=== PATIENT | female | born 1945 | race Caucasian/White ===

== ENCOUNTER → 2018-02-08 10:25 | Outpatient (CLI) | payer MEDICARE, OTHER, SELFPAY ==
[2018-02-08 11:17] LABS: Add Manual Diff / Slide Review NO; Basophils Percent Auto 1.2 % (0-2); Eosinophils Percent Auto 2.4 % (2-4); Hematocrit 37.6 % (36-46); Hemoglobin 12.9 g/dL (12.0-16.0); Mean Corpuscular HGB Conc 34.4 % (30-36); Mean Corpuscular Hemoglobin 31.5 PG (26-34); Mean Corpuscular Volume 91.6 fL (80-100); Neutrophils Absolute Auto 3800 /uL (3000-5900); Neutrophils Percent Auto 61.4 % (50-75); Platelet Count 157 X10^3/uL (150-400); Red Cell Distribution Width 13.6 % (11.6-14.8); White Blood Cell Count 6.2 X10^3/uL (4.5-11.0)
[2018-02-08 11:37] LABS: Alanine Aminotransferase 29 IU/L (9-52); Albumin 4.2 g/dL (3.5-5.0); Albumin Globulin Ratio 1.4 (1.0-2.8); Alkaline Phosphatase 40 U/L (38-126); Aspartate Aminotransferase 28 IU/L (14-36); BUN Creatinine Ratio 24.3 (6-22); Bilirubin Total 0.6 mg/dL (0.2-1.3); Calcium 9.1 mg/dL (8.4-10.2); Estimated Glomerular Filt Rate > 60.0 mL/min (>60); Glucose 89 mg/dL (80-110); HEMOLYSIS < 15 (0-50); Potassium 4.1 mmol/L (3.4-5.1); Sodium 139 mmol/L (137-145); Total Protein 7.2 g/dL (6.3-8.2)
[2018-02-08 13:21] LABS: Cholesterol 190 mg/dL (140-199); HDL Cholesterol 58 mg/dL (40-60); LDL Cholesterol Calculated 105 mg/dL (<100); Triglycerides 137 mg/dL (35-150)
[2018-02-12 16:02] LABS: Cancer Antigen 27.29 29 U/mL (< 38)
== END ==
PROVIDERS: PCP Family Medicine; Visit Provider Nurse Practitioner Gerontology
DX: C50.919 Malignant neoplasm of unspecified site of unspecified female breast (principal); Z13.220 Encounter for screening for lipoid disorders
CPT/HCPCS: 36415; 80053; 80061; 85025; 86300

== ENCOUNTER → 2018-09-02 10:45 | Outpatient (CLI) | payer MEDICARE, OTHER, SELFPAY ==
--- NOTE | 2018-09-02 10:29 | DI.RAD.S_ITS ---
This blank DEXA report has been sent in error by the PACS system. The correct and complete report will be forthcoming in 1-2 days. Thank you for your patience and understanding. Dictated by: Arun Kirby M.D. on 09/02/2018 at 11:48 Approved by: Arun Kirby M.D. on 09/02/2018 at 11:48
[2018-09-02 11:05] LABS: Add Manual Diff / Slide Review NO; Basophils Percent Auto 0.9 % (0-2); Eosinophils Percent Auto 1.8 % (2-4); Hematocrit 39.9 % (36-46); Hemoglobin 13.5 g/dL (12.0-16.0); Lymphocytes Percent Auto 25.6 % (25-40); Mean Corpuscular HGB Conc 33.9 % (30-36); Mean Corpuscular Hemoglobin 31.4 PG (26-34); Mean Corpuscular Volume 92.5 fL (80-100); Neutrophils Absolute Auto 3500 /uL (3000-5900); Neutrophils Percent Auto 62.7 % (50-75); Platelet Count 161 X10^3/uL (150-400); Red Blood Cell Count 4.31 X10^6/uL (4.0-5.2); Red Cell Distribution Width 13.4 % (11.6-14.8); White Blood Cell Count 5.5 X10^3/uL (4.5-11.0)
[2018-09-02 11:24] LABS: Alanine Aminotransferase 25 IU/L (9-52); Albumin 4.4 g/dL (3.5-5.0); Albumin Globulin Ratio 1.5 (1.0-2.8); Alkaline Phosphatase 40 U/L (38-126); Aspartate Aminotransferase 31 IU/L (14-36); BUN Creatinine Ratio 23.8 (6-22); Bilirubin Total 0.5 mg/dL (0.2-1.3); Blood Urea Nitrogen 19 mg/dL (7-17); Calcium 9.3 mg/dL (8.4-10.2); Carbon Dioxide 28 mmol/L (22-32); Chloride 102 mmol/L (98-107); Estimated Glomerular Filt Rate > 60.0 mL/min (>60); Globulin 2.9 g/dL (1.7-4.1); Glucose 110 mg/dL (80-110); HEMOLYSIS < 15 (0-50); Sodium 142 mmol/L (137-145); Total Protein 7.3 g/dL (6.3-8.2)
[2018-09-03 16:07] LABS: Cancer Antigen 27.29 29 U/mL (< 38)
== END ==
PROVIDERS: PCP Family Medicine; Visit Provider Nurse Practitioner Gerontology
DX: M85.851 Other specified disorders of bone density and structure, right thigh (principal); Z78.0 Asymptomatic menopausal state; C50.912 Malignant neoplasm of unspecified site of left female breast; Z79.810 Long term (current) use of selective estrogen receptor modulators (SERMs); Z90.722 Acquired absence of ovaries, bilateral; Z87.891 Personal history of nicotine dependence
CPT/HCPCS: 36415; 77080; 80053; 85025; 86300

== ENCOUNTER → 2018-12-16 11:32 | Outpatient (CLI) | payer MEDICARE, OTHER, SELFPAY ==
--- NOTE | 2018-12-16 | DI.MG.S_ITS ---
BILATERAL DIGITAL SCREENING MAMMOGRAM 3D/2D WITH CAD POST LUMPECTOMY: 12/16/2018 CLINICAL: Routine screening. Personal history of left breast cancer. Comparison is made to exams dated: 11/28/2017 mammogram, 11/17/2016 mammogram, and 11/16/2015 mammogram - [facility]. The tissue of both breasts is heterogeneously dense. This may lower the sensitivity of mammography. Current study was also evaluated with a Computer Aided Detection (CAD) system. There are benign post operative findings in the left breast. There also are benign calcifications in both breasts. No significant masses, calcifications, or other findings are seen in either breast. There has been no significant interval change. IMPRESSION: There is no mammographic evidence of malignancy. A 1 year screening mammogram is recommended. This exam was interpreted at Station ID: [id number]. NOTE: For mammograms, a report in lay terms will be sent to the patient. Approximately 15% of breast malignancies will not be visualized mammographically. In the management of a palpable breast mass, a negative mammogram must not discourage biopsy of a clinically suspicious lesion. Electronically Signed By: Rigo hernandez/stephan:12/16/2018 13:18:47 letter sent: Normal Exam ACR BI-RADS Category 2: Benign Finding(s) 3342F
== END ==
PROVIDERS: PCP Internal Medicine; Referring Provider Internal Medicine Hematology & Oncology; Visit Provider Internal Medicine
DX: Z12.31 Encounter for screening mammogram for malignant neoplasm of breast (principal); Z85.3 Personal history of malignant neoplasm of breast
CPT/HCPCS: 77063; 77067

== ENCOUNTER → 2019-01-08 09:35 | Outpatient (CLI) | payer MEDICARE, OTHER, SELFPAY ==
[2019-01-08 10:22] LABS: Appearance Urine UA CLEAR; Bilirubin Urine UA NEGATIVE (NEGATIVE); Color Urine UA YELLOW; Glucose Urine UA NEGATIVE (Negative); Ketones Urine UA NEGATIVE (NEGATIVE); Leukocyte Esterase Urine UA 1+ (NEGATIVE); Nitrite Urine UA NEGATIVE (Negative); Occult Blood Urine UA TRACE-INTACT (Negative); Protein Urine UA NEGATIVE (Negative); Specific Gravity Urine UA 1.025 (1.000-1.035); Urobilinogen Urine UA 0.2 E.U./dL (0.2); pH Urine UA 5.5 (4.5-8.0)
[2019-01-08 10:30] LABS: Add Manual Diff / Slide Review NO; Basophils Absolute Auto 0 /uL (0-100); Eosinophils Absolute Auto 100 /uL (0-450); Eosinophils Percent Auto 2.2 % (2-4); Hematocrit 37.1 % (36-46); Hemoglobin 12.7 g/dL (12.0-16.0); Lymphocytes Absolute Auto 1800 /uL (1100-4500); Lymphocytes Percent Auto 36.4 % (25-40); Mean Corpuscular HGB Conc 34.2 % (30-36); Mean Corpuscular Hemoglobin 32.2 PG (26-34); Mean Corpuscular Volume 94.1 fL (80-100); Monocytes Absolute Auto 500 /uL (0-900); Monocytes Percent Auto 11.1 % (3-14); Neutrophils Absolute Auto 2400 /uL (1500-7000); Neutrophils Percent Auto 49.3 % (50-75); Platelet Count 157 X10^3/uL (150-400); Red Blood Cell Count 3.94 X10^6/uL (4.0-5.2); Red Cell Distribution Width 13.9 % (11.6-14.8); White Blood Cell Count 4.9 X10^3/uL (4.5-11.0)
[2019-01-08 10:42] LABS: Alanine Aminotransferase 27 IU/L (9-52); Albumin 4.3 g/dL (3.5-5.0); Albumin Globulin Ratio 1.5 (1.0-2.8); Alkaline Phosphatase 37 U/L (38-126); Aspartate Aminotransferase 32 IU/L (14-36); BUN Creatinine Ratio 21.4 (6-22); Bilirubin Total 0.7 mg/dL (0.2-1.3); Blood Urea Nitrogen 15 mg/dL (7-17); Carbon Dioxide 29 mmol/L (22-32); Chloride 104 mmol/L (98-107); Cholesterol 194 mg/dL (140-199); Estimated Glomerular Filt Rate > 60.0 mL/min (>60); Globulin 2.9 g/dL (1.7-4.1); Glucose 91 mg/dL (80-110); HDL Cholesterol 62 mg/dL (40-60); HEMOLYSIS 25 (0-50); LDL Cholesterol Calculated 112 mg/dL (<100); Potassium 4.3 mmol/L (3.4-5.1); Sodium 140 mmol/L (137-145); Total Protein 7.2 g/dL (6.3-8.2); Triglycerides 98 mg/dL (35-150)
[2019-01-08 11:01] LABS: B Type Natriuretic Peptide < 100 (<100)
[2019-01-08 11:12] LABS: Bacteria Urine Few (2-10); Mucus Urine 1+ (Negative); RBC Urine 1-5/HPF (0-5/HPF); Squamous Epithelial Cell Urine 5-10 /HPF (0-5/HPF); WBC Urine 5-10/HPF (0-5/HPF)
[2019-01-08 11:49] LABS: Thyroid Stimulating Hormone 2.03 uIU/mL (0.47-4.68)
[2019-01-08 12:00] LABS: Vitamin D 25 Hydroxy (D3) 31.3 ng/mL (30.0-100.0)
== END ==
PROVIDERS: PCP Internal Medicine; Visit Provider Internal Medicine
DX: I10 Essential (primary) hypertension (principal); G47.19 Other hypersomnia; E78.5 Hyperlipidemia, unspecified; M85.80 Other specified disorders of bone density and structure, unspecified site; Z86.79 Personal history of other diseases of the circulatory system; Z85.3 Personal history of malignant neoplasm of breast
CPT/HCPCS: 36415; 80053; 80061; 81001; 82306; 83880; 84443; 85025

== ENCOUNTER → 2019-03-06 09:15 | Outpatient (CLI) | payer MEDICARE, OTHER, SELFPAY ==
--- NOTE | 2019-03-06 | DI.RAD.S_ITS ---
PROCEDURE: FL BARIUM SWALLOW W SPEECH INDICATIONS: Dysphagia, unspecified TECHNIQUE: Examination was conducted in conjunction with speech pathology per standard protocol. In the lateral projection, filming was performed of the patient swallowing. AP projection filming may also be performed with patient swallowing. COMPARISON: None. FINDINGS: Function: The oral preparatory phase appears normal, with proper containment. The subsequent oral propulsive phase, pharyngeal phase, and esophageal phase of swallowing also appear normal with all proffered substances. No laryngotracheal penetration or aspiration. No pathologic vallecular pooling. Morphology: No cricopharyngeal bar is identified. No cervical esophageal webs. No Zenker's diverticulum. No strictures. IMPRESSION: Normal exam. Please see separate speech pathologist report for detail. Dictated by: Rosemary Galvan M.D. on 03/06/2019 at 10:45 Approved by: Rosemary Galvan M.D. on 03/06/2019 at 10:46
--- NOTE | 2019-03-07 10:45 | ST.SWALLOW ---
Care Team Visit Care Team Role Provider Type Jordan Hawk MD Family Provider Physician Specialty: Oncology Address: [address] [place] [address], [id number] Email: Latonya Hernández MD Attending Provider Non-Staff Primary Care Provider Specialty: Internal Medicine Address: [address] [place] [address], [id number] Email: [email or web address] Modified Barium Swallow Study CUSTOMER ASSISTANCE ASSOCIATE Modified Barium Swallow Study Start: 03/07/19 10:20 Freq: Status: Active Protocol: Document 03/07/19 10:21 TLC (Rec: 03/07/19 10:44 TLC [id number]) Modified Barium Swallow Study Total Time Visit Start Time 09:30 Visit Stop Time 10:00 Total Visit Minutes [address] Latonya Hernández Setting Setting Outpatient Care Patient Information Identification Type Name Patient History Mrs. Valencia is a 73 year old female with a past medical history breast cancer . She has had a 6 month history of dysphagia with solids and liquids. She also reports significant choking on her saliva and difficulty with swallowing pills. She had a barium swallow in 2011 without abnormality. Subjective Observations Mrs. Valencia arrived on time. She was pleasant and cooperative during the study. Education was provided to both and Mrs. Valencia following the study. Patient Positioning Position View Lat-A/P Imaging Lateral View Textures Administered Trials Presented Thin Liquid via Spoon Thin Liquid via Cup [place] Liquid via Spoon [place] Liquid via Cup Honey Liquid via Spoon Pudding Thick Liquid via Spoon Regular Textures Oral Phase Source: MBSIMP (TM) (C) Bolus Specific Scoring Grid Lip Closure No Impairment (WNL) Tongue Control During Bolus Hold No Impairment (WNL) Bolus Prep/Mastication No Impairment (WNL) Bolus Transport/Lingual Motion No Impairment (WNL) Oral Residue No Impairment (WNL) Residue Clearing No Impairment (WNL) Pharyngeal Phase Source: MBSIMP (TM) (C) Bolus Specific Scoring Grid Soft Palate Elevation No Impairment (WNL) Laryngeal Elevation No Impairment (WNL) Anterior Hyoid Movement No Impairment (WNL) Epiglottic Range of Motion No Impairment (WNL) A/P View Textures Administered Trials Presented Barium Tablet A/P View Observations Pharyngeal Contraction No Impairment (WNL) Clinical Impressions Findings Limited exam due to technological malfunction precluding the ability to review imaging in detail; however, no penetration, aspiration or significant impairments identified during the study in real time. Cause of symptoms was not identified ; however, we discussed laryngopharyngeal reflux as a potential contributing factor , given presence of throat clearing. . Recommend follow- up with PCP. Patient may also benefit from otolaryngology evaluation at discretion of PCP. Patient Appropriate for Therapy No Recommendations Diet Liquids Order Thin Diet Order Regular Treatment Plan Recommended Referrals ENT Consult Additional Recommended Referrals Follow up with PCP Compensatory Strategies Recommendations Sitting Upright (90 deg) Small Bites and Sips Alternate Liquids/Solids
== END ==
PROVIDERS: PCP Internal Medicine; Visit Provider Internal Medicine
DX: R13.10 Dysphagia, unspecified (principal)
CPT/HCPCS: 74230; 92611

== ENCOUNTER → 2019-03-24 09:27 | Outpatient (CLI) | payer MEDICARE, OTHER, SELFPAY ==
--- NOTE | 2019-04-08 08:45 | P.HOLT.S_ITS ---
Air Conditioning Unit Assembler Report Referral & Results Date Patient Seen: 03/24/19 Requesting provider: Kaylee Gagnon Indication: SVT Duration of monitoring (days): 7 Diary information: Their 3 patient diary entries associated with sinus rhythm, PACs, PVCs, and SVT There 3 patient triggered events associated with sinus rhythm, PACs, PVCs, and SVT Data: Minimum heart rate identified was 57 beats per minute at 08:14 on 03/31/2019 Maximum sinus heart rate was 134 beats per minute at 13:00 on 03/29/2019 Maximum overall heart rate was 207 beats per minute at 21:50 on 03/28/2019 during a 7 beat run of SVT Patient had 35 runs of supraventricular tachycardia with the fastest being 7 beats at 207 beats per minute and the longest lasting 1 minutes 47 seconds at a rate of 109 beats per minute, thus suggesting possible ectopic atrial tachycardia versus true SVT Impression: Patient with rare supraventricular dysrhythmia as above. Clinical correlation suggested
== END ==
PROVIDERS: Family Provider Internal Medicine; PCP Family Medicine; Visit Provider Family Medicine
DX: I47.1 Supraventricular tachycardia (principal)
CPT/HCPCS: 0296T; 0298T

== ENCOUNTER → 2020-03-05 12:44 | Outpatient (CLI) | payer MEDICARE, OTHER, SELFPAY ==
--- NOTE | 2020-03-05 | DI.MG.S_ITS ---
BILATERAL DIGITAL SCREENING MAMMOGRAM 3D/2D WITH CAD: 03/05/2020 CLINICAL: Routine screening. Breast cancer. Comparison is made to exams dated: 12/16/2018 mammogram, 11/28/2017 mammogram, 11/17/2016 mammogram, and 11/16/2015 mammogram - [facility]. The tissue of both breasts is heterogeneously dense. This may lower the sensitivity of mammography. Current study was also evaluated with a Computer Aided Detection (CAD) system. There are benign calcifications in both breasts. There also are benign vascular calcifications in both breasts. Additionally, there are benign post operative findings in the left breast. No significant masses, calcifications, or other findings are seen in either breast. There has been no significant interval change. IMPRESSION: There is no mammographic evidence of malignancy. A 1 year screening mammogram is recommended. This exam was interpreted at Station ID: [id number]. NOTE: For mammograms, a report in lay terms will be sent to the patient. Approximately 15% of breast malignancies will not be visualized mammographically. In the management of a palpable breast mass, a negative mammogram must not discourage biopsy of a clinically suspicious lesion. Electronically Signed By: Nhan goode/stephan:03/05/2020 14:43:08 letter sent: Normal Exam ACR BI-RADS Category 2: Benign Finding(s) 3342F
[2020-03-05 14:26] LABS: Add Manual Diff / Slide Review NO; Basophils Absolute Auto 0 /uL (0-100); Basophils Percent Auto 0.8 % (0-2); Eosinophils Absolute Auto 100 /uL (0-450); Eosinophils Percent Auto 1.6 % (2-4); Hematocrit 38.9 % (36-46); Hemoglobin 13.5 g/dL (12.0-16.0); Lymphocytes Absolute Auto 1700 /uL (1100-4500); Mean Corpuscular HGB Conc 34.7 % (30-36); Mean Corpuscular Hemoglobin 32.4 PG (26-34); Mean Corpuscular Volume 93.3 fL (80-100); Monocytes Absolute Auto 500 /uL (0-900); Neutrophils Absolute Auto 3600 /uL (1500-7000); Neutrophils Percent Auto 60.6 % (50-75); Platelet Count 177 X10^3/uL (150-400); Red Blood Cell Count 4.17 X10^6/uL (4.0-5.2); Red Cell Distribution Width 13.5 % (11.6-14.8); White Blood Cell Count 5.9 X10^3/uL (4.5-11.0)
[2020-03-05 14:31] LABS: Alanine Aminotransferase 30 IU/L (<35); Albumin 4.4 g/dL (3.5-5.0); Albumin Globulin Ratio 1.3 (1.0-2.8); Alkaline Phosphatase 53 U/L (38-126); Aspartate Aminotransferase 36 IU/L (14-36); BUN Creatinine Ratio 22.5 (6-22); Bilirubin Total 0.6 mg/dL (0.2-1.3); Blood Urea Nitrogen 20 mg/dL (7-17); Calcium 9.8 mg/dL (8.4-10.2); Carbon Dioxide 30 mmol/L (22-32); Chloride 102 mmol/L (98-107); Estimated Glomerular Filt Rate > 60.0 mL/min (>60); Globulin 3.3 g/dL (1.7-4.1); Glucose 101 mg/dL (80-110); HEMOLYSIS < 15 (0-50); Potassium 4.4 mmol/L (3.4-5.1); Sodium 139 mmol/L (137-145); Total Protein 7.7 g/dL (6.3-8.2)
[2020-03-06 02:36] LABS: Cancer Antigen 27.29 30.7 U/mL (0.0-38.6)
== END ==
PROVIDERS: Family Provider Internal Medicine; PCP Family Medicine; Referring Provider Internal Medicine Hematology & Oncology; Visit Provider Internal Medicine Hematology & Oncology
DX: Z12.31 Encounter for screening mammogram for malignant neoplasm of breast (principal); C50.912 Malignant neoplasm of unspecified site of left female breast; Z17.0 Estrogen receptor positive status [ER+]
CPT/HCPCS: 36415; 77063; 77067; 80053; 85025; 86300

== ENCOUNTER → 2020-03-19 15:40 | Outpatient (CLI) | payer MEDICARE, OTHER, SELFPAY ==
--- NOTE | 2020-03-19 | DI.MRI.S_ITS ---
PROCEDURE: MR KNEE LT WO CON INDICATIONS: Unspecified internal derangement of left knee TECHNIQUE: Noncontrast sagittal PD fast spin echo and T2 fast spin echo with fat saturation, sagittal 3-D FLASH with fat saturation; coronal T1 spin echo and PD fast spin echo with fat saturation, and axial PD fast spin echo with fat saturation through the knee. COMPARISON: [facility] Vernon Flynn, CR, XR KNEE ARTHRITIC SERIES LT, 03/04/2020, 14:37. FINDINGS: Image quality: Excellent. Menisci: Linear horizontally oriented high T2 signal intensity traverses the posterior horn medial meniscus, demonstrating inferior articular surface extension. Amorphous high signal intensity within the lateral meniscal body and anterior horn is present, demonstrating inferior and superior articular surface extension, indicating degenerative tearing.. Cruciate ligaments: The posterior cruciate ligament is intact. There is mild T2 signal elevation within the mid/inferior anterior cruciate ligament, consistent with ACL strain. Medial structures: The medial collateral ligament appears intact. Visualized portions of the pes anserinus tendons appear normal. No abnormal bursal fluid. Lateral structures: The lateral collateral ligament, long and short heads of the biceps femoris tendon appear intact. The popliteus tendon appears normal. Iliotibial band appears normal. Anterior structures: The quadriceps and patellar tendons appear intact. Patellar alignment is normal. No femoral trochlear dysplasia or ventral trochlear prominence. No edema in the infrapatellar fat pad. Bones and cartilage: No displaced fracture. Moderate ill-defined T2 signal elevation within the mid/posterior weightbearing aspect of the lateral tibial plateau. Mild tricompartmental periarticular osteophyte formation. Moderate articular cartilage loss diffusely overlies the weightbearing aspects of the medial femoral condyle, medial tibial plateau, lateral femoral condyle and lateral tibial plateau. Articular cartilage fibrillation overlies the lateral patellar facet. Severe articular cartilage loss overlies the medial patellar apex and medial patellar facet. Joint space: There is a small knee joint effusion and a trace Lorenzo's cyst. Normal appearing synovial plicae are incidentally noted. IMPRESSION: 1. ACL strain. 2. Medial and lateral meniscal tear. 3. Tricompartmental osteoarthritis with associated articular cartilage loss. 4. Contusion within the lateral tibial plateau. No displaced fracture. 5. Small knee joint effusion and trace Lorenzo's cyst. Dictated by: Len Shetty M.D. on 03/19/2020 at 16:46 Approved by: Len Shetty M.D. on 03/19/2020 at 16:48
== END ==
PROVIDERS: Family Provider Internal Medicine; PCP Family Medicine; Referring Provider Orthopaedic Surgery; Visit Provider Orthopaedic Surgery
DX: S83.242A Other tear of medial meniscus, current injury, left knee, initial encounter (principal); S83.282A Other tear of lateral meniscus, current injury, left knee, initial encounter; S83.512A Sprain of anterior cruciate ligament of left knee, initial encounter; M17.12 Unilateral primary osteoarthritis, left knee; S80.02XA Contusion of left knee, initial encounter; M25.462 Effusion, left knee
CPT/HCPCS: 73721

== ENCOUNTER → 2020-05-18 14:42 | Outpatient (CLI) | payer MEDICARE, OTHER, SELFPAY ==
[2020-05-18 15:34] LABS: Add Manual Diff / Slide Review NO; Basophils Absolute Auto 100 /uL (0-100); Basophils Percent Auto 1.1 % (0-2); Eosinophils Absolute Auto 100 /uL (0-450); Eosinophils Percent Auto 2.1 % (2-4); Hemoglobin 13.4 g/dL (12.0-16.0); Lymphocytes Absolute Auto 1600 /uL (1100-4500); Lymphocytes Percent Auto 25.3 % (25-40); Mean Corpuscular HGB Conc 33.6 % (30-36); Mean Corpuscular Hemoglobin 31.4 PG (26-34); Mean Corpuscular Volume 93.7 fL (80-100); Monocytes Absolute Auto 700 /uL (0-900); Monocytes Percent Auto 10.7 % (3-14); Neutrophils Absolute Auto 3900 /uL (1500-7000); Neutrophils Percent Auto 60.8 % (50-75); Platelet Count 166 X10^3/uL (150-400); Red Blood Cell Count 4.27 X10^6/uL (4.0-5.2); Red Cell Distribution Width 13.6 % (11.6-14.8); White Blood Cell Count 6.5 X10^3/uL (4.5-11.0)
[2020-05-18 16:07] LABS: Alanine Aminotransferase 30 IU/L (<35); Albumin 4.5 g/dL (3.5-5.0); Albumin Globulin Ratio 1.6 (1.0-2.8); Alkaline Phosphatase 67 U/L (38-126); Aspartate Aminotransferase 38 IU/L (14-36); BUN Creatinine Ratio 21.1 (6-22); Bilirubin Total 0.6 mg/dL (0.2-1.3); Blood Urea Nitrogen 16 mg/dL (7-17); Calcium 9.6 mg/dL (8.4-10.2); Carbon Dioxide 27 mmol/L (22-32); Chloride 103 mmol/L (98-107); Estimated Glomerular Filt Rate > 60.0 mL/min (>60); Globulin 2.9 g/dL (1.7-4.1); Glucose 94 mg/dL (80-110); HEMOLYSIS < 15 (0-50); Potassium 4.3 mmol/L (3.4-5.1); Sodium 138 mmol/L (137-145); Total Protein 7.4 g/dL (6.3-8.2)
== END ==
PROVIDERS: Family Provider Internal Medicine; PCP Family Medicine; Referring Provider Family Medicine; Visit Provider Family Medicine
DX: Z01.818 Encounter for other preprocedural examination (principal); I10 Essential (primary) hypertension
CPT/HCPCS: 36415; 80053; 85025

== ENCOUNTER → 2020-05-30 11:44 | Outpatient (CLI) | payer MEDICARE, OTHER, SELFPAY ==
[2020-06-01 01:41] LABS: COVID19 Sendout Not Detected (Not Detected)
== END ==
PROVIDERS: Family Provider Internal Medicine; PCP Family Medicine; Visit Provider Physician Assistant
DX: Z11.59 Encounter for screening for other viral diseases (principal)
CPT/HCPCS: 87635

== ENCOUNTER 2020-06-02 07:33 | Day surgery (SDC) | payer MEDICARE, OTHER, SELFPAY ==
[2020-05-28 10:39] VITALS: BMI 25.7
[2020-06-02] VITALS (12 sets, daily range): BP systolic 105–148; BP diastolic 48–83; PULSE 63–80; RESP 9–20; TEMP 35.7–36.7; O2SAT 95–98; BMI 25.3
--- NOTE | 2020-06-02 | DI.RAD.S_ITS ---
PROCEDURE: XR KNEE LT 1TO2V INDICATIONS: LEFT TOTAL KNEE TECHNIQUE: 2 view(s) of the knee acquired. COMPARISON: [facility], , KNEE 3V RIGHT, 02/25/2009, 10:34. FINDINGS: Bones: Patient is status post knee joint arthroplasty. Hardware components are in expected positions. Visualized bony structures are intact. Soft tissues: Overlying postoperative changes are noted. IMPRESSION: Post left total knee arthroplasty changes with anatomic left knee alignment. Dictated by: Arun Kirby M.D. on 06/02/2020 at 11:08 Approved by: Arun Kirby M.D. on 06/02/2020 at 11:08
[2020-06-02] MEDS: LACTATED RINGERS 1,000 ML 42 ML IV (08:31)
[2020-06-02] MEDS: ACETAMINOPHEN 325 MG TABLET 975 MG PO (08:49)
[2020-06-02] MEDS: CELECOXIB 200 MG CAPSULE PO (08:49)
--- NOTE | 2020-06-02 08:49 | PM.PREOP ---
Pre-operative Note COVID-19 COVID-19 status: Negative Result date/Date tested (Pos, Neg/Pending): 05/30/20 Interval Note History & Physical reviewed/Exam performed by Physician: Yes Changes to H&P: No
--- NOTE | 2020-06-02 08:49 | PM.OP.1 ---
Operative Date/Time/Diagnoses Date of procedure: 06/02/20 Time of procedure: 10:40 Pre-op diagnosis: Left knee osteoarthritis Post-op diagnosis: same Procedure & Clinicians Procedure: Left total knee arthroplasty Same procedure as scheduled: Yes Indications: Total knee indication Surgeon: Nhan Forbes Copper Miner Blasting: Rajan Becerril Anesthesia Type: General, Spinal and Local Operative Notes Closure Type: primary Specimen(s): none sent Prosthetic devices, grafts, tissues, transplants, or devices: Choudhary and Nephew Lananey BCS: 5 femoral component, 4 tibial component, 9 mm BCS polyethylene tray and 32 mm round patella Applied: implant(s) Estimated Blood Loss (mL): 10 Blood products transfused: none Tourniquet time (min): 57 Procedure in detail: The patient was taken to the operative suite and placed under anesthesia. The patient was given prophylactic antibiotics prior to surgery. The patient was also given tranexamic acid, 1 g, just prior to surgery for postoperative hemostasis. The lateral knee was prepped and the joint injected with 20 mL of 1% Lidocaine with epinephrine. The knee was then prepped and draped in usual sterile fashion. The leg was exsanguinated with an Esmarch dressing and the tourniquet raised to 250 torr. A 15 cm anterior incision was made. Next a medial trivector arthrotomy was made. The extensor mechanism was marked to ensure accurate repair. Initial exposing dissection was carried out medially and laterally. The knee was then flexed and the intramedullary femoral guide speedy placed. The distal femoral cut was made in 6? of valgus at the +0 position. The femoral size was measured and the appropriate cutting block was then placed and the anterior, posterior and chamfer cuts made. The intramedullary tibial alignment speedy was then placed. The guide was set to remove approximately 9 mm from the lateral side. The proximal tibial cut was then made with an oscillating saw. All meniscus and bony debris was then removed. Posterior femoral osteophytes removed with a curved osteotome. Flexion extension gaps were checked. The knee was tight both in flexion and extension so 2 more mm of tibia was removed. The knee was also slightly tight laterally as opposed to medially. The lateral capsule was released with a pie crust technique with a 15 blade which nicely balance the knee. The soft tissues were then injected with a combination of 20 mL of half percent Marcaine with epinephrine and 20 mL of Exparel. The trial components were then placed. The knee was then extended and the patellar thickness was measured and a cut made removing approximately 9 mm of bone. The patella was then sized and drilled. Some excess lateral bone was excised and the patellofemoral ligament released. The knee went into full extension and flexion beyond 130?. There was excellent medial-lateral balance throughout motion. Patellar tracking was good. The trial components were removed and the knee was cleansed with Pulsavac irrigation and dried. The final components were cemented with high viscosity vacuum mixed bone cement with antibiotics. The joint was filled with a dilute Betadine solution. The knee was held in extension and the patellar clamped until the cement was adequately cured. The knee was then irrigated. The extensor mechanism was closed with 5 interrupted #1 Vicryl sutures and a running Quill suture at approximately 90 degrees of flexion. The joint was then injected with a combination of 1 g of tranexamic acid and 20 mL of quarter percent Marcaine with epinephrine. The subcutaneous tissue was closed with 2 0 Vicryl. The skin was closed with absorbable subcuticular sutures and surgical adhesive. An Aquacel dressing and Herman wrap were then applied. The patient tolerated the procedure well and was returned to recovery room in good condition. Complications: none Post-operative Condition: stable Disposition: PACU Plan for aftercare: [facility] Care Protocol.
[2020-06-02] MEDS: CEFAZOLIN 2 GM/100 ML FROZ.PIGGY IV ×2 (09:00→18:04)
--- NOTE | 2020-06-02 09:28 | SUR.OPER ---
Supine on padded OR bed. Pillow under head, arms secured on padded armboards <90 degree abduction. Safety belt across torso. Non-operative leg secured with tape over blanket over lower leg. Operative leg secured in [place] positioner. Foam padded brace at thigh of operative leg.
[2020-06-02] MEDS: TRANEXAMIC ACID 1,000 MG VIAL 1000 MG IV ×3 (09:36→09:44)
[2020-06-02] MEDS: BUPIVACAINE 0.25% W/ EPI (PF) 40 ML, BUPIVACAINE LIPOSOME 266 MG, SODIUM CHLORIDE 0.9% ... INJ ×2 (09:37→09:44)
[2020-06-02] MEDS: LIDOCAINE 1% W/EPI 20 ML INJ (09:39)
[2020-06-02] MEDS: LACTATED RINGERS 1,000 ML 100 ML IV ×2 (11:31→23:09)
--- NOTE | 2020-06-02 14:20 | PT.IIE ---
Current Diagnoses Unilateral primary osteoarthritis, left knee (06/02/20) Surgery Performed Operation Date: 06/02/20 08:45 Actual Procedures p Total Knee Arthroplasty(Left) - Nhan Forbes MD Surgical History (Last Updated 05/28/20 @ 10:48 by Mary Crawford RN) Anesthesia (Resolved) History of back surgery (Resolved ~1993) History of cardiac radiofrequency ablation (Resolved ~05/2015) History of cataract removal with insertion of prosthetic lens (~12/2015) Hx of thumb surgery (Acute 01/2019) Status post breast lumpectomy (~11/2011) Status post colonoscopy Status post dilation and curettage (03/24/16) Status post hysterectomy (~03/2017) Status post laparoscopy (~1986) Status post laparotomy (~1987) Status post rotator cuff repair (~05/2006) Medical History (Last Updated 05/28/20 @ 10:51 by Mary Crawford RN) Ankle pain (Chronic ~2016) Breast cancer (Chronic ~2011) Cardiac arrhythmia (Chronic) Chicken pox (Resolved) Chronic back pain (Chronic) Endometriosis (Chronic) HTN (hypertension) (Acute) Measles (Resolved) Mumps (Resolved) Osteopenia (Chronic) Polio (Resolved) Rosacea (Chronic) Rubella (Resolved) Scarlet fever (Resolved) Sciatica (Chronic) Physical Therapy Inpatient Evaluation/Re-Eval M1 PT/OT-IP Prior Functional Status Start: 06/02/20 16:34 Freq: NEEDED Status: Active Protocol: Document 06/02/20 14:20 AB (Rec: 06/02/20 16:47 AB [id number]) Medical Review Prior Functional Status Medical History Reviewed Yes Communication able to make needs known Mobility and Gait pt stated that she is independent with all mobilities and ambulation without AD Social History Household Members spouse Living Arrangements House Number of Floors (Floors) One Floor Number of Stairs To Enter/Railing? no steps to enter; has a ramp Home Environment Tub/Shower,Ramp Home Equipment Front Wheel Walker,Raised Toilet Seat w/Armrests,Tub Transfer Bench,Hand Held Shower,Grab Bars Near Toilet Employment Status Retired M2 PT-IP Current Condition Start: 06/02/20 16:34 Freq: NEEDED Status: Active Protocol: Document 06/02/20 14:20 AB (Rec: 06/02/20 16:47 AB [id number]) Physical Therapy Current Condition Current Condition Evaluation Date 06/02/20 Treatment Diagnosis s/p L TKA; difficulty in walking Onset Date 06/02/20 Weight Bearing Status Weight Bearing Status Weight Bear as Tolerated Allowed Weight Bearing Amount (enter % WBAT LLE or #) (%) M3 PT-IP Subjective Start: 06/02/20 16:34 Freq: NEEDED Status: Active Protocol: Document 06/02/20 14:20 AB (Rec: 06/02/20 16:47 [email or web address]) Subjective Physical Therapy Visit Type Type Initial Evaluation Visit Start Time 14:20 Visit Stop Time 16:17 Total Visit Minutes 45 Notes pt seen for split visits: 1420 to 1435 and 1543 to 1617 Number of VP SECURITIES Visits 0 Physical Therapy Visit Comments Patient Comments initially did not have much sensation back on LE but home set up and PLOF obtained; came back to check on pt and pt up with nursing using bedside commode Patient Goals to go home Therapy Pain Assessment Pain When Pain Assessed During Mobility Pain Present Pain Present Pain Reported Location Left Knee Intensity 3 Scale Used Numeric (0 - 10) Pain Management Techniques Apply Cold,Re-positioning, Timing of Activity with Medications M4 PT-IP Mobility and Gait Start: 06/02/20 16:34 Freq: NEEDED Status: Active Protocol: Document 06/02/20 14:20 AB (Rec: 06/02/20 16:47 [email or web address]) PT-Bed Mobility Assessment Sit to Supine Sit to Supine Standby Assistance,1 Person Assistance PT-Transfer Assessment Sit to and From Stand Sit to and from Stand Minimal Assistance,Moderate Assistance,1 Person Assistance ,Use of Upper Extremities Equipment Transfer Assistive Device Gait Belt,Front Wheeled Walker Orthotic/Prosthetic Devices or Brace: No Transfers Transfer Destination Bed Transfer Technique Stand Step Pivot Transfer Ability Level of Assist Minimal Assistance,Moderate Assistance,1 Person Assistance ,Use of Upper Extremities Comments Mobility Comments spouse in room with pt. pt up with nursing. pt sitting on bedside commode. completed sit to stand mod A and cues. pt tends not to put weight on LLE during standing. cued for weight bearing. pt was able to maintain standing using FWW for support min A while assisted with brief management . completed stand step transfer to EOB min to mod A using FWW. pt educated on safety and techniques for sit to stand and ambulation. completed sit to stand from EOB min A and ambulated in room using FWW min A ~ 20 ft. pt requested to go back to bed. stated that she is feeling faint. completed sit to supine SBA. positioned in bed. BP: 116/65. call light and table placed within reach. Gait Assessment Gait Gait Assistance Required: Minimum Assistance,1 Person Assist Distance (Feet) 20 Able to Maintain Weight Bearing Status Yes During Gait Assistive Devices Assistive Device Gait Belt,Front Wheeled Walker Orthotic/Prosthetic Devices or Brace: No Gait Deviations General Gait Pattern Antalgic,Decreased Stride Length,Decreased Feet Clearance Factors Limiting Gait Function Factors Limiting Gait Function Decreased Activity Tolerance, Decreased Strength,Difficulty Following Directions,Limited Range of Motion,Pain,Poor Balance,Poor Safety Awareness Comments Gait Comments pls refer to mobility section or details PT-Balance Assessment Sitting Balance and Reactions Static Sitting Balance Ability Good Dynamic Sitting Balance Ability Good Standing Balance and Reactions Static Standing Balance Ability Fair Dynamic Standing Balance Ability Fair Device Used FWW M5 PT-IP Objective Assessments Start: 06/02/20 16:34 Freq: NEEDED Status: Active Protocol: Document 06/02/20 14:20 AB (Rec: 06/02/20 16:47 AB [id number]) Orientation Orientation/Cognition Level of Alertness Alert Orientation Name,Place,Situation Language Function Ability No Deficits Noted Safety Awareness Understands Safety Issues Memory Description No Deficits Noted Strength Lower Extremity Strength Assessment Left Impaired Hip 4-/5 Knee 3+/5 Coordination Assessment Gross Coordination Gross Coordination WNL Muscle Tone Muscle Tone WNL Yes M6 PT-IP Treatment Start: 06/02/20 16:34 Freq: NEEDED Status: Active Protocol: Document 06/02/20 14:20 AB (Rec: 06/02/20 16:47 AB [id number]) Physical Therapy Treatment Education Education Provided Precautions,Weight Bearing Status,Post-Op Packet,Safety M7 PT-IP Assessment and Plan Start: 06/02/20 16:34 Freq: NEEDED Status: Active Protocol: Document 06/02/20 14:20 AB (Rec: 06/02/20 16:47 AB [email or web address]) PT Summary Assessment and Plan Potential Rehabilitation Potential Good Status of Condition at Evaluation Evolving Summary Impairments Pain,ROM,Strength,Balance, Coordination,Sensation,Tone, Cognition,Bed Mobility, Transfers,Gait,Activity Tolerance Assessment Summary pt requiring min to mod A with mobility. pt s/p L TKA and just had surgery this morning. pt plans to go home with spouse to assist her. d/c plan depending on progress and will conduct caregiver training if appropriate. pt stated that she is set up for outpt PT. Goals Bed Mobility Goal Independent Transfer Goal Independent,Front Wheeled Walker Gait Goal Independent,Front Wheel Walker Gait Distance 200 Days to Meet Goals 3 Frequency of Treatment Frequency Of Treatment Twice a Day Treatment Plan Physical Therapy Treatment Plan Bed Mobility Training,Transfer Training,Gait Training, Therapeutic Exercise,Balance Retraining,Post Op Education, Discharge Planning,Hot or Cold Pack,Neuromuscular Re-ed, Coordination Retraining,Manual Therapy Recommendations To Nursing Amount of Assist Needed 1 Person Assist Discharge Recommendations PT Discharge Recommendations Home with Assistance, Outpatient PT Transportation Needs at Discharge Private Vehicle
[2020-06-02] MEDS: ACETAMINOPHEN 325 MG TABLET 650 MG PO ×2 (14:40→21:21)
[2020-06-02] MEDS: IBUPROFEN 400 MG TABLET PO ×3 (14:41→21:19)
[2020-06-02] MEDS: hydrOXYzine pamoate 25 MG CAPSULE PO (16:38)
[2020-06-02] MEDS: ASPIRIN EC 81 MG TABLET PO (21:19)
[2020-06-02] MEDS: DOCUSATE 100 MG CAPSULE PO (21:19)
[2020-06-03] MEDS: CEFAZOLIN 2 GM/100 ML FROZ.PIGGY IV (01:25)
[2020-06-03] MEDS: IBUPROFEN 400 MG TABLET PO ×3 (01:26→08:23)
[2020-06-03 05:36] VITALS: BP 121/89; PULSE 72; RESP 18; TEMP 36.7; O2SAT 95
[2020-06-03 06:00] LABS: Hematocrit 34.4 % (36-46); Hemoglobin 11.6 g/dL (12.0-16.0)
[2020-06-03 08:15] VITALS: BP 140/74; PULSE 76; RESP 16; TEMP 36.3; O2SAT 96
[2020-06-03] MEDS: METOPROLOL IR 25 MG TABLET PO (08:23)
[2020-06-03] MEDS: ASPIRIN EC 81 MG TABLET PO (08:23)
[2020-06-03] MEDS: DOCUSATE 100 MG CAPSULE PO (08:23)
[2020-06-03] MEDS: ACETAMINOPHEN 325 MG TABLET 650 MG PO (08:23)
[2020-06-03] MEDS: CALCIUM CARBONATE 500 MG TAB 1500 MG PO (08:23)
--- NOTE | 2020-06-03 09:15 | CM.DANOTE ---
DCP: Case received, EMR reviewed and met with patient. , Craig, was also at bedside. Introduced self and role. Was able to obtain information from patient regarding her baseline activity status prior to surgery. DCP assessment completed with information currently available. Patient is a 75 year old female who admitted yesterday morning to the care of the orthopedic team. PCP: Dr. Gagnon. Payer: confirmed: Medicare/[employer]. Patient came to the hospital for a surgical procedure. She had left total knee arthroplasty. She has history of arthritis. Met with patient in her room. She is alert and oriented, , Craig, will plan to assist patient when she goes home. She uses no DME at baseline, and has been able to drive. Her and her spouse reside here in [place], and has outpatient P.T. set up. She will be working with P.T/O.T, as well. P: DCP to continue to follow. Patient should be able to discharge home when she is medically stable and cleared by P.T. Chani Mcdonough RN/Interventional Radiology Technologist
--- NOTE | 2020-06-03 09:34 | P.DS_ITS ---
History of Present Illness History of Present Illness Date Patient Seen: 06/03/20 Time Patient Seen: 09:34 Chief complaint: OPB Narrative: Patient doing well. No new complaints today. Physical therapy went well and would like to be discharged home today. Patient has her home in available to assist her. Discharge Providers Provider Discharge Date: 06/03/20 Primary care physician: Kaylee Gagnon DO Consults: 06/02/20 11:24 Consult to Discharge Planning Routine Comment: Consult to Physical Therapy Evaluate & Treat Comment: Physician Instructions: postop TKA protocol Consult to Respiratory Therapy Evaluate & Treat Comment: Physician Instructions: Evaluate and treat Discharge provider: Rajan Becerril PA-C Summary Hospital Course Discharge Diagnosis: Knee osteoarthritis Hospital Course: [address] [address] Operative Note Patient: Millie Valencia R#: [id number] : 7Acct:[id number] Age/Sex: 75 / F Date of Service: 06/02/20 Provider: Nhan Forbes MD Operative Date/Time/Diagnoses Date of procedure: 06/02/20 Time of procedure: 10:40 Pre-op diagnosis: Left knee osteoarthritis Post-op diagnosis: same Procedure & Clinicians Procedure: Left total knee arthroplasty Same procedure as scheduled: Yes Indications: Total knee indication Surgeon: Nhan Forbes Transmission System Operator: Rajan Becerril Anesthesia Type: General, Spinal and Local Operative Notes Closure Type: primary Specimen(s): none sent Prosthetic devices, grafts, tissues, transplants, or devices: Choudhary and Nephew Jossy BCS: 5 femoral component, 4 tibial component, 9 mm BCS polyethylene tray and 32 mm round patella Applied: implant(s) Estimated Blood Loss (mL): 10 Blood products transfused: none Tourniquet time (min): 57 Patient admitted to the hospital for left total knee arthroplasty. Patient consented to the same. Patient taken to the operating room underwent left total knee arthroplasty. Patient back in her room recovering well as in stable condition. She had a little dizziness yesterday with physical therapy and stayed overnight for observation. Her blood pressures remained stable. She just completed physical therapy and Physical therapy agrees as she is stable to be discharged home today. Exam Vital Signs (past 8 hours): - 06/03/20 05:36 Temperature 98.0 F Pulse Rate 72 Respiratory Rate 18 Blood Pressure 121/89 Pulse Oximetry 95 Oxygen Delivery Method Room Air Oxygen Flow Rate 0 Narrative Exam Narrative: Pleasant 75-year-old female walking with walker in the room. Left knee dressing is clean, dry and intact. Motor functions intact distal left lower extremity. Left leg is warm and dry. Objective Labs Result Diagrams: 06/03/20 05:45 Labs: Laboratory Results - last 24 hr 06/03/20 05:45 Hgb 11.6 L Hct 34.4 L Discharge Assessment & Plan Assessment and Plan Assessment: Postop day 1. Status post left total knee arthroplasty. Patient progressing as expected and will be discharged home today in stable condition. Discharge Plan Discharge Plan Patient Disposition: Home Discharge Med Rec/Prescriptions Prescriptions: Continued metoprolol tartrate 25 mg tablet 25 mg PO DAILY Qty: 90 RF: 3 calcium carbonate [Tums] 200 mg calcium (500 mg) Tablet,Chewable 1,500 mg PO DAILY RF: 0 ibuprofen 200 mg Capsule 400 mg PO DAILY PRN (Reason: Pain) RF: 0 famotidine [Pepcid] 20 mg Tablet 20 mg PO DAILY PRN (Reason: GI upset) RF: 0 multivitamin Tablet 1 tab PO DAILY RF: 0 Follow up/Referrals: Nhan Forbes MD [Physician] - 2 Weeks Discharge Orders: Discharge (Order); Ordered 06/03/20 Ordered By: Rajan Becerril Provider Discharge Instructions Diet: Regular Activity: Progressive weight-bearing and activity as tolerated. Daily knee range of motion exercises. Cold/Heat Therapy: May ice the knee for 20 minutes at a time as needed for pain. Other treatments: Use ibuprofen 400 mg and Tylenol 500 mg every 4 hours in addition to prescribe pain medication. Skin/Wound/Dressing Care Report to your healthcare provider any signs of infection, such as:: chills, fever, increased pain, unusual drainage and unusual redness Dressing: May leave dressing in place until follow-up. May shower over the dressing. Visit Report/Discharge Packet Instructions: DI for Knee Replacement Stand Alone Forms: Surgery Discharge Discharge Data Primary Care Provider: Kaylee Gagnon Attending Provider: Nhan Forbes Quality VTE Deep Vein Thrombosis/Pulmonary Embolism Present on Admission: No
--- NOTE | 2020-06-03 09:45 | PT.IPTN ---
Current Diagnoses Unilateral primary osteoarthritis, left knee (06/02/20) Surgery Performed Operation Date: 06/02/20 08:45 Actual Procedures p Total Knee Arthroplasty(Left) - Nhan Forbes MD Physical Therapy Treatment Note M2 PT-IP Current Condition Start: 06/02/20 16:34 Freq: NEEDED Status: Discharge Protocol: Document 06/02/20 14:20 AB (Rec: 06/02/20 16:47 AB [id number]) Physical Therapy Current Condition Current Condition Evaluation Date 06/02/20 Treatment Diagnosis s/p L TKA; difficulty in walking Onset Date 06/02/20 Weight Bearing Status Weight Bearing Status Weight Bear as Tolerated Allowed Weight Bearing Amount (enter % WBAT LLE or #) (%) M3 PT-IP Subjective Start: 06/02/20 16:34 Freq: NEEDED Status: Discharge Protocol: Document 06/03/20 09:05 SP (Rec: 06/03/20 13:29 SP [id number]) Subjective Physical Therapy Visit Type Type Treatment Note Visit Start Time 09:05 Visit Stop Time 09:45 Total Visit Minutes 40 Notes present and completed caregiver training with physical assist as needed. Number of WARM IN WORKER Visits 1 Physical Therapy Visit Comments Patient Comments Wanting to return home with to assist her. Pt reported is staying in [facility] that has ramp to enter but would like to assess stairs if able to assess 8-12 stairs has in her home 1 HR. Patient Goals to go home Therapy Pain Assessment Pain When Pain Assessed During Mobility Pain Present Pain Present Pain Reported Location Left Thigh Intensity 2 Scale Used Numeric (0 - 10) Pain Management Techniques Apply Cold,Re-positioning, Timing of Activity with Medications M4 PT-IP Mobility and Gait Start: 06/02/20 16:34 Freq: NEEDED Status: Discharge Protocol: Document 06/03/20 09:05 SP (Rec: 06/03/20 13:29 SP [id number]) PT-Bed Mobility Assessment Supine to Sit Supine to Sit Independent Sit to Supine Sit to Supine Independent Scooting Scooting to Edge of Bed Independent PT-Transfer Assessment Sit to and From Stand Sit to and from Stand Standby Assistance,Use of Upper Extremities Equipment Transfer Assistive Device Gait Belt,Front Wheeled Walker Orthotic/Prosthetic Devices or Brace: No Transfers Transfer Destination Bed,Chair Transfer Technique Pt ambulated using FWW Transfer Ability Level of Assist Standby Assistance,Contact Guard Assistance,Use of Upper Extremities Comments Mobility Comments Pt supine in bed when arrived. Instructed patient in post-op exercises: quad set, heel slide self performance approx 90 deg, SAQ AAROM by , supine hip abd, ankle pumps, seated knee flexion. supine<> sitting I with self LE performance. Sit<> stand CGA initially decreased to SBA using FWW ableto walk further distance into hallway approx 230 ft using FWW sBA cuing for L knee flexion heel toe gait phases wtih improved step over step performance as distance progressed. Ascend/descend 6 stairs B HR 1st set then RHR step to patterning CGA by to assess performance if could stay in main house per pt request (8-12 stairs) vs [facility] (planned with ramp) . Pt reported glad can do some stairs but will plan to stay in [facility] at this time. Pt walked back to room approx 230 ft total with only [address] the way for recovery tiring. Pt sat in chair when returned to room sBA good BUE support,slow descent. Pt had call light and all needs in reach before left. in room. Pt is ok to return home with to assist her when medically stable. Pt has outpt PT set up next week. Gait Assessment Gait Gait Assistance Required: Standby Assistance,Contact Guard Assist Distance (Feet) 230 Able to Maintain Weight Bearing Status Yes During Gait Assistive Devices Assistive Device Gait Belt,Front Wheeled Walker Orthotic/Prosthetic Devices or Brace: No Gait Deviations General Gait Pattern Antalgic,Decreased Stride Length,Decreased Feet Clearance Factors Limiting Gait Function Factors Limiting Gait Function Decreased Activity Tolerance, Decreased Strength,Difficulty Following Directions,Limited Range of Motion,Pain Comments Gait Comments See mobility comments for details. Stair Climbing Assessment Evaluation Level of Assist On Stairs Contact Guard Assistance Devices Stair Climbing Assistive Devices Right Railing Technique/Endurance Stair Climbing Direction Ascend and Descend Stair Climbing Technique Step to Step Number of Steps Climbed 3 Stair Climbing Set # Repetitions (reps) 2 Comments Stair Climbing Comments See mobility comments for details. PT-Balance Assessment Sitting Balance and Reactions Static Sitting Balance Ability Good Dynamic Sitting Balance Ability Good Standing Balance and Reactions Static Standing Balance Ability Fair Dynamic Standing Balance Ability Fair Device Used FWW M5 PT-IP Objective Assessments Start: 06/02/20 16:34 Freq: NEEDED Status: Discharge Protocol: Document 06/02/20 14:20 AB (Rec: 06/02/20 16:47 AB [id number]) Orientation Orientation/Cognition Level of Alertness Alert Orientation Name,Place,Situation Language Function Ability No Deficits Noted Safety Awareness Understands Safety Issues Memory Description No Deficits Noted Strength Lower Extremity Strength Assessment Left Impaired Hip 4-/5 Knee 3+/5 Coordination Assessment Gross Coordination Gross Coordination WNL Muscle Tone Muscle Tone WNL Yes M6 PT-IP Treatment Start: 06/02/20 16:34 Freq: NEEDED Status: Discharge Protocol: Document 06/03/20 09:05 SP (Rec: 06/03/20 13:29 SP [id number]) Physical Therapy Treatment Exercises Exercises Ankle Pumps,Quad Sets,Heel Slides,Supine Hip Abduction, Short Arc Quads,Seated Knee Flexion/Extension Knee ROM Measurement 90 deg Education Education Provided Precautions,Weight Bearing Status,Post-Op Packet,Safety M7 PT-IP Assessment and Plan Start: 06/02/20 16:34 Freq: NEEDED Status: Discharge Protocol: Document 06/03/20 09:05 SP (Rec: 06/03/20 13:29 SP [id number]) PT Summary Assessment and Plan Potential Rehabilitation Potential Good Status of Condition at Evaluation Evolving Summary Impairments Pain,ROM,Strength,Balance, Coordination,Sensation,Tone, Cognition,Bed Mobility, Transfers,Gait,Activity Tolerance Assessment Summary completed caregiver training including Le ex support during SAQ only, don gait belt, SBA sit to stand, CGA to SBA during gait usign FWW further distance 230 ft and CGA during stair mgt. Pt is ok to return home with her spouse to assist her when medically stable, outpt therapy is already set up. Goals Bed Mobility Goal Independent Transfer Goal Independent,Front Wheeled Walker Gait Goal Independent,Front Wheel Walker Gait Distance 200 Days to Meet Goals 3 Frequency of Treatment Frequency Of Treatment Twice a Day Treatment Plan Physical Therapy Treatment Plan Bed Mobility Training,Transfer Training,Gait Training, Therapeutic Exercise,Balance Retraining,Post Op Education, Discharge Planning,Hot or Cold Pack,Neuromuscular Re-ed, Coordination Retraining,Manual Therapy Recommendations To Nursing Amount of Assist Needed Standby Assistance Discharge Recommendations PT Discharge Recommendations Home with Assistance, Outpatient PT Transportation Needs at Discharge Private Vehicle
--- NOTE | 2020-06-03 10:32 | PC.NURSE ---
Pt denies pain to left surgical knee. She has been given scheduled tylenol and ibuprofen. Her work with PT was satisfactory she is cleared for discharge. She has been provided a shower.
== END 2020-06-03 10:55 | disposition home or self-care (01) ==
LOC: OR 07:34 → AC 07:35
PROVIDERS: Family Provider Internal Medicine; PCP Family Medicine; Referring Provider Orthopaedic Surgery; Visit Provider Orthopaedic Surgery
PROC: 0SRD0JZ Replacement of Left Knee Joint with Synthetic Substitute, Open Approach (ICD-10-PCS; CPT 27447; principal; 2020-06-02 08:45)
DX: M17.12 Unilateral primary osteoarthritis, left knee (principal)
CPT/HCPCS: 27447; 36415; 73560; 85014; 85018; 97116; 97162; 97530; C1776; C9290; J0690; J1100; J2250; J2405; J2704; J3010

== ENCOUNTER → 2020-12-23 09:11 | Outpatient (CLI) | payer MEDICARE, OTHER, SELFPAY ==
[2020-06-02 12:16] VITALS: BMI 25.3
--- NOTE | 2020-12-23 09:12 | DI.MRI.S_ITS ---
PROCEDURE: MR LUMBAR SPINE WO CON INDICATIONS: R sided sciatica TECHNIQUE: Noncontrast sagittal T1 spin echo and T2 fast echo, sagittal STIR, axial T1 and T2 fast spin echo through the lumbar spine. In cases with scoliosis, additional coronal T2 fast spin echo may be performed. COMPARISON: [facility], CR, L-SPINE 2-3 VIEWS, 08/28/2013, 12:36. [facility], MR, L-SPINE WITHOUT CONTRAST, 04/01/2015, 7:44. FINDINGS: Image quality: Excellent. Alignment and Curvature: There is mild levo curvature, possibly degenerative in nature, centered at L3. There is mild degenerative anterolisthesis of L5 on S1 measuring 5 mm. There is trace degenerative anterolisthesis of L3 on L4 and trace degenerative retrolisthesis of L2 on L3. Bone Marrow: Marrow is of normal overall signal. No acute vertebral body compression fractures. Spinal Cord: Conus medullaris terminates at the L1 level. Visualized cord demonstrates normal signal and size. Paraspinous Soft Tissues: No paravertebral masses. T11-T12: Disc bulge. No canal stenosis or foraminal stenosis. T12-L1: Large broad-based disc bulge, eccentric to the left, extending into the left foramen. Facet and ligament hypertrophy. Moderate resulting canal stenosis. Mild facet hypertrophy. No significant foraminal stenosis. L1-L2: Chronic disc height loss. Posterior disc bulge. Facet hypertrophy. Mild canal stenosis. Mild bilateral foraminal stenosis. L2-L3: Trace retrolisthesis of L2 on L3. Posterior disc bulge. Facet hypertrophy. Gdmb-dz-yuukfhyw canal stenosis. Mild right foraminal stenosis. L3-L4: Remote left hemilaminectomy. Remarkably prominent right facet hypertrophy. Moderate narrowing of the right brendan canal. Far left lateral disc bulge indents on the exiting left L3 nerve root far laterally. 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 There is anel-vr-xgoyoywj bilateral foraminal narrowing. L5-S1: Anterolisthesis of L5 on S1, posterior disc bulge, and bilateral facet hypertrophy result in moderate canal stenosis. There is right foraminal annulus tear. There is moderate to severe right foraminal narrowing with foraminal nerve root impingement, in part secondary to right foraminal disc bulge. There is mild to moderate left foraminal narrowing. IMPRESSION: 1. Findings are most significant at L4-L5, where there is severe central canal stenosis and bilateral lateral recess stenosis. 2. Canal stenosis is moderate at T12-L1, mild at L1-L2, sfkh-dw-rknfdesx at L2-L3, and moderate at L5-S1. 3. At L3-L4, there has been previous left laminectomy. There is moderate narrowing of the right brendan canal. 4. Multilevel foraminal narrowing as described above. This includes moderate to severe right foraminal narrowing with foraminal nerve root impingement at L5-S1. Dictated by: Kam Borden M.D. on 12/23/2020 at 11:23 Approved by: Kam Borden M.D. on 12/23/2020 at 11:48
== END ==
PROVIDERS: Family Provider Internal Medicine; PCP Family Medicine; Referring Provider Family Medicine; Visit Provider Family Medicine
DX: M54.41 Lumbago with sciatica, right side (principal); M43.17 Spondylolisthesis, lumbosacral region; M48.061 Spinal stenosis, lumbar region without neurogenic claudication; M48.05 Spinal stenosis, thoracolumbar region; M48.07 Spinal stenosis, lumbosacral region; G89.29 Other chronic pain
CPT/HCPCS: 72148

== ENCOUNTER → 2021-03-07 11:20 | Outpatient (CLI) | payer MEDICARE, OTHER, SELFPAY ==
[2020-06-02 12:16] VITALS: BMI 25.3
--- NOTE | 2021-03-07 11:21 | DI.MG.S_ITS ---
BILATERAL DIGITAL SCREENING MAMMOGRAM 3D/2D WITH CAD POST LUMPECTOMY: 03/07/2021 CLINICAL: Routine screening. Personal history of left breast cancer. Comparison is made to exams dated: 03/05/2020 mammogram, 12/16/2018 mammogram, and 11/28/2017 mammogram - [facility]. The tissue of both breasts is heterogeneously dense. This may lower the sensitivity of mammography. Current study was also evaluated with a Computer Aided Detection (CAD) system. There are benign calcifications in both breasts. There also are benign vascular calcifications in both breasts. Additionally, there are benign post operative findings in the left breast. No significant masses, calcifications, or other findings are seen in either breast. There has been no significant interval change. IMPRESSION: BENIGN There is no mammographic evidence of malignancy. A 1 year screening mammogram is recommended. This exam was interpreted at Station ID: [id number]. NOTE: For mammograms, a report in lay terms will be sent to the patient. Approximately 15% of breast malignancies will not be visualized mammographically. In the management of a palpable breast mass, a negative mammogram must not discourage biopsy of a clinically suspicious lesion. Electronically Signed By: Ivonne marie/stephan:03/07/2021 13:30:49 copy to: Kaylee Gagnon letter sent: Normal Exam ACR BI-RADS Category 2: Benign Finding(s) 3342F
== END ==
PROVIDERS: Family Provider Internal Medicine; PCP Family Medicine; Referring Provider Family Medicine; Visit Provider Family Medicine
DX: Z12.31 Encounter for screening mammogram for malignant neoplasm of breast (principal); C50.919 Malignant neoplasm of unspecified site of unspecified female breast
CPT/HCPCS: 77063; 77067

== ENCOUNTER → 2021-12-01 09:43 | Outpatient (CLI) | payer MEDICARE, OTHER, SELFPAY ==
[2021-11-18 14:45] VITALS: BMI 25.3
--- NOTE | 2021-12-15 11:46 | P.HOLT.S_ITS ---
[place] [employer] Report Referral & Results Date Patient Seen: 12/01/21 Requesting provider: Kaylee Gagnon Indication: Supraventricular tachycardia Duration of monitoring (days): 7 Diary information: There were 8 patient triggered events and 5 patient diary entries All 13 of these patient events were variably associated with (within 45 seconds) sinus rhythm, PACs, and SVT Data: Minimum heart rate identified was 55 beats per minute at 03:02 on 12/04/2021 Maximum sinus heart rate was 138 beats per minute at 16:06 on 12/02/2021 Maximum overall heart rate was 218 beats per minute at 12:41 on 12/05/2021 during a run of SVT Less than 1% of identified beats were ventricular or supraventricular ectopic in origin, which would classify them as rare. There were 66 runs of SVT the fastest being a 9 beat run at 218 beats per minute the longest lasting 36.8 seconds at a rate of 154 beats per minute There is also 1 run of SVT that the computer identified as ventricular tachycardia but I believe it to be SVT that was 5 beats in duration Impression: 7 day manager regional demonstrating very rare very brief runs of SVT as well as rare simple PVCs and PACs Clinical correlation suggested
== END ==
PROVIDERS: Family Provider Internal Medicine; PCP Family Medicine; Referring Provider Family Medicine; Visit Provider Family Medicine
DX: I47.1 Supraventricular tachycardia (principal)
CPT/HCPCS: 93242; 93244

== ENCOUNTER → 2021-12-27 10:44 | Outpatient (CLI) | payer MEDICARE, OTHER, SELFPAY ==
[2021-11-18 14:45] VITALS: BMI 25.3
[2021-12-27 12:06] LABS: BUN Creatinine Ratio 15.8 (6-22); Blood Urea Nitrogen 12 mg/dL (7-17); Calcium 9.6 mg/dL (8.4-10.2); Carbon Dioxide 31 mmol/L (22-32); Chloride 105 mmol/L (98-107); Estimated Glomerular Filt Rate > 60.0 mL/min (>60); Glucose 102 mg/dL (80-110); HEMOLYSIS < 15 (0-50); Potassium 4.2 mmol/L (3.4-5.1); Sodium 141 mmol/L (137-145)
[2021-12-27 12:30] LABS: Thyroid Stimulating Hormone 1.54 uIU/mL (0.47-4.68)
== END ==
PROVIDERS: Family Provider Internal Medicine; PCP Family Medicine; Referring Provider Nurse Practitioner; Visit Provider Nurse Practitioner
DX: I47.1 Supraventricular tachycardia (principal)
CPT/HCPCS: 36415; 80048; 84443

== ENCOUNTER → 2022-03-08 10:59 | Outpatient (CLI) | payer MEDICARE, OTHER, SELFPAY ==
[2021-11-18 14:45] VITALS: BMI 25.3
[2022-03-08 11:35] LABS: Add Manual Diff / Slide Review NO; Basophils Absolute Auto 100 /uL (0-100); Basophils Percent Auto 1.5 % (0-2); Eosinophils Absolute Auto 300 /uL (0-450); Eosinophils Percent Auto 5.3 % (2-4); Hemoglobin 13.1 g/dL (12.0-16.0); Lymphocytes Absolute Auto 1400 /uL (1100-4500); Lymphocytes Percent Auto 28.6 % (25-40); Mean Corpuscular HGB Conc 33.6 % (30-36); Mean Corpuscular Hemoglobin 31.2 PG (26-34); Mean Corpuscular Volume 92.8 fL (80-100); Monocytes Absolute Auto 500 /uL (0-900); Monocytes Percent Auto 10.7 % (3-14); Neutrophils Absolute Auto 2600 /uL (1500-7000); Neutrophils Percent Auto 53.9 % (50-75); Platelet Count 190 X10^3/uL (150-400); Red Cell Distribution Width 13.5 % (11.6-14.8); White Blood Cell Count 4.8 X10^3/uL (4.5-11.0)
[2022-03-08 12:54] LABS: Alanine Aminotransferase 19 IU/L (<35); Albumin 4.2 g/dL (3.5-5.0); Albumin Globulin Ratio 1.5 (1.0-2.8); Alkaline Phosphatase 67 U/L (38-126); Aspartate Aminotransferase 31 IU/L (14-36); BUN Creatinine Ratio 26.1 (6-22); Bilirubin Total 0.5 mg/dL (0.2-1.3); Blood Urea Nitrogen 18 mg/dL (7-17); Calcium 9.4 mg/dL (8.4-10.2); Carbon Dioxide 30 mmol/L (22-32); Chloride 103 mmol/L (98-107); Estimated Glomerular Filt Rate > 60 mL/min (>60); Globulin 2.8 g/dL (1.7-4.1); Glucose 101 mg/dL (80-110); HEMOLYSIS < 15 (0-50); Potassium 4.6 mmol/L (3.4-5.1); Sodium 139 mmol/L (137-145)
[2022-03-09 12:13] LABS: Cancer Antigen 27.29 22.2 U/mL (0.0-38.6)
== END ==
PROVIDERS: Family Provider Internal Medicine; PCP Family Medicine; Referring Provider Internal Medicine; Visit Provider Internal Medicine
DX: C50.919 Malignant neoplasm of unspecified site of unspecified female breast (principal)
CPT/HCPCS: 36415; 80053; 85025; 86300

== ENCOUNTER → 2022-03-08 11:21 | Outpatient (CLI) | payer MEDICARE, OTHER, SELFPAY ==
[2021-11-18 14:45] VITALS: BMI 25.3
--- NOTE | 2022-03-08 | DI.MG.S_ITS ---
BILATERAL DIGITAL SCREENING MAMMOGRAM 3D/2D WITH CAD POST LUMPECTOMY: 03/08/2022 CLINICAL: Routine screening. Personal history of left breast cancer. Comparison is made to exams dated: 03/07/2021 mammogram, 03/05/2020 mammogram, and 12/16/2018 mammogram - [facility]. The tissue of both breasts is heterogeneously dense. This may lower the sensitivity of mammography. Current study was also evaluated with a Computer Aided Detection (CAD) system. There are benign calcifications in both breasts. There also are benign vascular calcifications in both breasts. Additionally, there are benign post operative findings in the left breast. No significant masses, calcifications, or other findings are seen in either breast. There has been no significant interval change. IMPRESSION: BENIGN There is no mammographic evidence of malignancy. A 1 year screening mammogram is recommended. This exam was interpreted at Station ID: [id number]. NOTE: For mammograms, a report in lay terms will be sent to the patient. Approximately 15% of breast malignancies will not be visualized mammographically. In the management of a palpable breast mass, a negative mammogram must not discourage biopsy of a clinically suspicious lesion. Electronically Signed By: Senait holley/stephan:03/08/2022 16:10:50 letter sent: Normal Exam ACR BI-RADS Category 2: Benign Finding(s) [id number]
== END ==
PROVIDERS: Family Provider Internal Medicine; PCP Family Medicine; Referring Provider Family Medicine; Visit Provider Family Medicine
DX: Z12.31 Encounter for screening mammogram for malignant neoplasm of breast (principal); Z85.3 Personal history of malignant neoplasm of breast; Z13.820 Encounter for screening for osteoporosis; M85.851 Other specified disorders of bone density and structure, right thigh; M85.852 Other specified disorders of bone density and structure, left thigh; Z78.0 Asymptomatic menopausal state; Z90.710 Acquired absence of both cervix and uterus; Z92.241 Personal history of systemic steroid therapy
CPT/HCPCS: 36415; 77063; 77067; 77080; 80053; 85025; 86300

== ENCOUNTER → 2022-07-12 16:53 | Outpatient (CLI) | payer MEDICARE, OTHER, SELFPAY ==
[2021-11-18 14:45] VITALS: BMI 25.3
== END ==
PROVIDERS: Family Provider Internal Medicine; PCP Family Medicine; Visit Provider Registered Nurse
DX: J02.9 Acute pharyngitis, unspecified (principal)
CPT/HCPCS: 87070

== ENCOUNTER → 2022-07-27 08:45 | Outpatient (CLI) | payer MEDICARE, OTHER, SELFPAY ==
[2021-11-18 14:45] VITALS: BMI 25.3
--- NOTE | 2022-07-27 | DI.MRI.S_ITS ---
PROCEDURE: MR LUMBAR SPINE WO CON INDICATIONS: Spinal stenosis, lumbar TECHNIQUE: Noncontrast sagittal T1 spin echo and T2 fast echo, sagittal STIR, and T2 fast spin echo through the lumbar spine. In cases with scoliosis, additional coronal T2 fast spin echo may be performed. COMPARISON: None. FINDINGS: Mild lower lumbar levoscoliosis centered at L3-L4. No significant listhesis. Vertebral body heights maintained. No suspicious focal marrow signal abnormality. Mild diffuse multilevel discogenic marrow edema in the lower thoracic spine and lumbar spine. Normal position and appearance of the conus. Prevertebral and paraspinous soft tissues demonstrate no acute finding. T12-L1: Mild spinal canal stenosis due to posterior disc osteophyte complex flattening the ventral thecal sac along with bulky facet hypertrophy and buckling of the ligamentum flavum indenting the dorsal lateral thecal sac. There is no definite mass effect on the conus. There is displacement of numerous traversing cauda quant nerve roots. Foraminal components of the disc bulge and facet hypertrophy combine to produce moderate left and mild right neural foraminal stenosis. L1-L2: Disc bulge flattens the ventral thecal sac and displaces the descending L2 nerve roots in both subarticular zones. Foraminal components of the disc bulge and facet hypertrophy combine with facet hypertrophy to produce mild bilateral neural foraminal stenosis. L2-L3: Diffuse disc bulge and a superimposed broad-based posterior disc protrusion flatten and indent the ventral thecal sac. Displacement and possible impingement of the descending L3 nerve roots in both subarticular zones. Bulky facet hypertrophy and buckling of the ligamentum flavum further contribute to overall moderate spinal canal and subarticular zone narrowing. There is moderate bilateral neural foraminal stenosis due to foraminal components of the disc bulge and facet hypertrophy. Disc material abuts and mildly flattens the exiting bilateral L2 nerve roots. L3-L4: Diffuse disc bulge and a superimposed broad-based posterior disc protrusion flatten and indent the ventral thecal sac, displacing the bilateral descending L4 nerve roots within both subarticular zones. Bulky facet hypertrophy, much more pronounced on the right, produces severe right subarticular zone narrowing and mild left subarticular zone stenosis. Foraminal components of the disc bulge and facet hypertrophy combine to produce moderate bilateral neural foraminal stenosis with flattening of the exiting bilateral L3 nerve roots. L4-L5: Severe spinal canal stenosis and subarticular zone stenosis due to diffuse disc bulge and a superimposed broad-based posterior disc protrusion with large bulky facet hypertrophy and buckling of the ligamentum flavum narrowing the thecal sac laterally. Disc material significantly displaces the descending L5 nerve roots in both subarticular zones. There is complete effacement of CSF in the thecal sac along with compression of the traversing nerve roots. Laxity of the nerve roots above and below this level indicates almost certain impingement. Foraminal components of the disc bulge and facet hypertrophy combine to produce moderate right and mild left neural foraminal narrowing. L5-S1: Diffuse disc bulge with a superimposed broad-based posterior disc protrusion. Displacement and probable impingement of the descending S1 nerve roots in both subarticular zones. Moderate to severe neural foraminal stenosis bilaterally with flattening of the exiting bilateral L5 nerve roots. IMPRESSION: Overall moderate to severe multilevel multifactorial degenerative changes which are progressed from 12/23/2020 examination at each level. Severe spinal canal and subarticular zone stenosis at L4-L5 with probable descending L5 nerve root impingement bilaterally. Additional areas of probable descending subarticular zone nerve root impingement as detailed above. Moderate and severe neural foraminal narrowing at multiple levels with flattening/deformation of the exiting nerve roots as detailed above. Dictated by: Chuck Ratliff M.D. on 07/27/2022 at 11:45 Approved by: Chuck Ratliff M.D. on 07/27/2022 at 11:52
== END ==
PROVIDERS: Family Provider Internal Medicine; PCP Family Medicine; Referring Provider Physical Medicine & Rehabilitation; Visit Provider Physical Medicine & Rehabilitation
DX: M48.062 Spinal stenosis, lumbar region with neurogenic claudication (principal); M47.816 Spondylosis without myelopathy or radiculopathy, lumbar region; M48.07 Spinal stenosis, lumbosacral region
CPT/HCPCS: 72148

== ENCOUNTER → 2022-08-09 08:04 | Outpatient (CLI) | payer MEDICARE, OTHER, SELFPAY ==
[2021-11-18 14:45] VITALS: BMI 25.3
[2022-08-09 09:24] LABS: BUN Creatinine Ratio 21.9 (6-22); Blood Urea Nitrogen 16 mg/dL (7-17); Calcium 9.2 mg/dL (8.4-10.2); Carbon Dioxide 33 mmol/L (22-32); Chloride 102 mmol/L (98-107); Cholesterol 242 mg/dL (140-199); Estimated Glomerular Filt Rate > 60 mL/min (>60); Glucose 90 mg/dL (80-110); HDL Cholesterol 80 mg/dL (40-60); HEMOLYSIS < 15 (0-50); LDL Cholesterol Calculated 142 mg/dL (<100); Potassium 5.2 mmol/L (3.4-5.1); Sodium 139 mmol/L (137-145); Triglycerides 99 mg/dL (35-150)
== END ==
PROVIDERS: Family Provider Internal Medicine; PCP Family Medicine; Referring Provider Family Medicine; Visit Provider Family Medicine
DX: E78.5 Hyperlipidemia, unspecified (principal); M85.89 Other specified disorders of bone density and structure, multiple sites
CPT/HCPCS: 36415; 80048; 80061; 82306

== ENCOUNTER → 2022-08-22 10:14 | Outpatient (CLI) | payer MEDICARE, OTHER, SELFPAY ==
[2021-11-18 14:45] VITALS: BMI 25.3
[2022-08-22 10:57] LABS: HEMOLYSIS < 15 (0-50); Potassium 4.5 mmol/L (3.4-5.1)
== END ==
PROVIDERS: Family Provider Internal Medicine; PCP Family Medicine; Referring Provider Family Medicine; Visit Provider Family Medicine
DX: E83.52 Hypercalcemia (principal)
CPT/HCPCS: 36415; 84132

== ENCOUNTER → 2022-08-28 10:46 | Outpatient (CLI) | payer MEDICARE, OTHER, SELFPAY ==
[2021-11-18 14:45] VITALS: BMI 25.3
--- NOTE | 2022-08-28 | DI.CT.S_ITS ---
PROCEDURE: CT LUMBAR SPINE WO CON INDICATIONS: Spinal stenosis, lumbar region TECHNIQUE: Noncontrast 3 mm thick sections acquired from the T12 level to the sacrum. Sagittal and coronal reformats were constructed. For radiation dose reduction, the following was used: automated exposure control. COMPARISON: [facility], MR, MR LUMBAR SPINE WO CON, 07/27/2022, 8:57. FINDINGS: Image quality: Excellent. Bones: There is moderate leftward curvature of the lower lumbar spine. Loss of normal lumbar lordosis. Multilevel disc space narrowing and endplate osteophyte formation. Multilevel facet hypertrophy. There is moderate f canal stenosis at L2-L3. Mild foraminal stenosis at the remaining levels. Multilevel foraminal stenoses are present, worst at L3-L4, L4-L5 and L5-S1 bilaterally where there is associated intraforaminal nerve root compression as seen by MRI. No acute vertebral body compression fractures. No suspicious lytic or blastic bony lesions. No pars defects. Soft tissues: No retroperitoneal masses or hematomas. Visualized aorta is normal in caliber. IMPRESSION: 1. Multilevel degenerative disc and facet disease. 2. Moderate L2-L3 canal stenosis. 3. Multilevel foraminal stenoses as described above with associated intraforaminal nerve root compression. Dictated by: Len Shetty M.D. on 08/28/2022 at 12:05 Transcribed by: VIOLET on 08/28/2022 at 12:47 Approved by: Len Shetty M.D. on 08/28/2022 at 16:30
== END ==
PROVIDERS: Family Provider Internal Medicine; PCP Family Medicine; Referring Provider Orthopaedic Surgery Orthopaedic Surgery of the Spine; Visit Provider Orthopaedic Surgery Orthopaedic Surgery of the Spine
DX: M48.062 Spinal stenosis, lumbar region with neurogenic claudication (principal); M48.07 Spinal stenosis, lumbosacral region; M51.36 Other intervertebral disc degeneration, lumbar region; M47.816 Spondylosis without myelopathy or radiculopathy, lumbar region
CPT/HCPCS: 72131

== ENCOUNTER 2023-01-19 19:08 | Emergency (ER) | payer MEDICARE, OTHER, SELFPAY ==
[2022-09-06 15:50] VITALS: BMI 25.3
[2023-01-19 19:10] VITALS: BP 162/87; PULSE 78; RESP 16; TEMP 36.4; O2SAT 96; BMI 24.4
== END 2023-01-19 21:10 | disposition left against medical advice (07) ==
PROVIDERS: Emergency Provider Emergency Medicine; Family Provider Internal Medicine; PCP Family Medicine
CPT/HCPCS: 99281

== ENCOUNTER 2023-01-20 07:54 | Emergency (ER) | payer MEDICARE, OTHER, SELFPAY ==
[2022-09-06 15:50] VITALS: BMI 25.3
[2023-01-20 08:05] VITALS: BP 166/77; PULSE 62; RESP 19; TEMP 36.2; O2SAT 99
[2023-01-20 08:30] VITALS: BP 144/76; PULSE 63; RESP 18; O2SAT 99
--- NOTE | 2023-01-20 08:45 | ED.EPISTAXIS ---
HPI - Epistaxis General Chief complaint: Nasal Problem Stated complaint: nose bleed since last night Time Seen by Provider: 01/20/23 08:25 Source: patient and family Mode of arrival: Family Vehicle History of Present Illness HPI Narrative: Patient here with . Complains of epistaxis. Patient states had this problem when she was a child. Patient is not on any blood thinners other than daily aspirin. No known injury. Patient states 1st episode occurred 24 hours ago, yesterday 4:30 a.m.. Had left nostril bleeding. It did improve however last night it returned and she came here and received a nose clamp but was not formally seen. They had to leave because the wait was too long. Bleeding improved with nose clamp. However this morning it started bleeding again from both nostrils. Currently not bleeding. Nose clamp removed. No blood in posterior pharynx. Related Data Home Medications Medication Instructions Recorded Confirmed multivitamin 1 tab PO DAILY 02/22/18 01/31/23 calcium carbonate 200 mg calcium 1,500 mg PO DAILY 05/28/20 01/31/23 (500 mg) chewable tablet (Tums) famotidine 20 mg tablet (Pepcid) 20 mg PO DAILY PRN GI upset 05/28/20 01/31/23 aspirin 81 mg tablet 81 mg PO DAILY 03/15/22 01/31/23 cholecalciferol (vitamin D3) 25 25 mcg PO DAILY 03/15/22 01/31/23 mcg (1,000 unit) capsule (Vitamin D3) OcuComplete 1 cap PO DAILY 01/31/23 metoprolol succinate 25 mg 25 mg PO DAILY 01/31/23 01/31/23 tablet,extended release 24 hr Previous Rx's Medication Instructions Recorded mupirocin 2 % topical ointment 1 applic topical BID #22 grams 01/31/23 rosuvastatin 5 mg tablet 5 mg PO DAILY #90 tabs 01/31/23 Allergies Allergy/AdvReac Type Severity Reaction Status Date / Time adhesive tape [ADHESIVE TAPE] Allergy Mild rash, Verified 01/31/23 08:05 paper ok chemo drugs AdvReac Mild constipation, Uncoded 01/31/23 08:05 depression Review of Systems Review of Systems Narrative: GENERAL: negative chills, fatigue, malaise, fever, sweats. HEENT: negative sinus pain, ear pain, sore throat, positive epistaxis RESPIRATORY: negative dyspnea, cough CARDIOVASCULAR: negative chest pain, palpitations GASTROINTESTINAL: negative nausea, vomiting, abdominal pain : negative dysuria, frequency, hematuria MUSCULOSKELETAL: negative muscle or bony pain SKIN: negative rash, skin lesions NEUROLOGIC: negative weakness, numbness ROS Unobtainable: All systems reviewed & are unremarkable except as noted in HPI and below Patient History Medical History (Updated 02/04/23 @ 00:01 by ) Ankle pain (~2016) Basal cell carcinoma (~2018) Chicken pox Chronic back pain Chronic low back pain with right-sided sciatica Do not resuscitate Endometriosis Essential hypertension GERD without esophagitis Lumbar spinal stenosis Measles Mixed hyperlipidemia Mumps Osteopenia Polio Rosacea Rubella Scarlet fever Sciatica Surgical History Anesthesia H/O total knee replacement (~2019) History of back surgery (~1993) History of cardiac radiofrequency ablation (~05/2015) History of cataract removal with insertion of prosthetic lens (~12/2015) Hx of thumb surgery (01/2019) Status post breast lumpectomy (~11/2011) Status post colonoscopy Status post dilation and curettage (03/24/16) Status post hysterectomy (~03/2017) Status post laparoscopy (~1986) Status post laparotomy (~1987) Status post rotator cuff repair (~05/2006) Family History Child Age: 48 Hypertension Mother Hypertension Father No problems noted. Grandfather No problems noted. Grandfather No problems noted. Grandmother No problems noted. Social History marital status: household members: spouse education level: college Previous occupational history: Retired senior analyst [employer] Smoking Status: Former smoker alcohol intake: current substance use type: does not use Smoking Status: Former smoker alcohol intake frequency: 0-2 drinks per day Substance Use Type: does not use Exam Narrative Exam Narrative: GENERAL: in no distress, not toxic not dyspneic HEAD: Normocephalic. EYES: Pupils equal round ENT: Mucous membranes moist. Nose clamp removed. There was no blood or bleeding or clots in the right nostril. No blood in posterior pharynx no clots in posterior pharynx. Left nostril there is no active bleeding no clots. No identified site of bleeding anteriorly. NECK: Trachea midline. BACK: No flank tenderness. NEURO: AOx4. SKIN: Warm and dry PSYCH: Not anxious, is cooperative Initial Vital Signs Initial Vital Signs: Vital Signs Temperature 97.2 F L 01/20/23 08:05 Pulse Rate 62 01/20/23 08:05 Respiratory Rate 19 01/20/23 08:05 Blood Pressure 166/77 H 01/20/23 08:05 Pulse Oximetry 99 01/20/23 08:05 Oxygen Delivery Method Room Air 01/20/23 08:05 Procedures Epistaxis Control Time of procedure: 08:50 Time Out Performed: Yes Nostril: left Direct Inspection: yes Device Inserted: other (4.5 cm rhino rocket) Patient Tolerated Procedure: well and no complications Course Orders Ordered: Discontinued Medications Oxymetazoline HCl (Oxymetazoline Nasal [place] 15 Ml) 2 sprays NASAL NOW ONE Stop: 01/21/23 00:59 Last Admin: 01/21/23 01:09 Dose: 2 sprays Documented By: MARCY Vital Signs Vital signs: Vital Signs - 8 hr 01/20/23 08:05 Temperature 97.2 F L Pulse Rate 62 Respiratory Rate 19 Blood Pressure 166/77 H Pulse Oximetry 99 Oxygen Delivery Method Room Air MDM - Epistaxis Lab Data 01/20/23 08:55 01/20/23 08:55 Labs: Lab Results 01/20/23 01/20/23 01/20/23 Range/Units 08:55 08:55 08:55 WBC 4.2 L (4.5-11.0) X10^3/uL RBC 4.04 (4.0-5.2) X10^6/uL Hgb 12.2 (12.0-16.0) g/dL Hct 36.4 (36-46) % MCV 90.1 (80-100) fL MCH 30.2 (26-34) PG MCHC 33.5 (30-36) % RDW 14.8 (11.6-14.8) % Plt Count 166 (150-400) X10^3/uL Neut % (Auto) 53.1 (50-75) % Lymph % (Auto) 30.5 (25-40) % [place] % (Auto) 11.5 (3-14) % Eos % (Auto) 3.4 (2-4) % Baso % (Auto) 1.5 (0-2) % Neut # (Auto) 2200 (4890-0992) /uL Lymph # (Auto) 1300 (9149-0812) /uL [place] # (Auto) 500 (0-900) /uL Eos # (Auto) 100 (0-450) /uL Baso # (Auto) 100 (0-100) /uL PT 13.0 H (10.1-12.7) SECONDS INR 1.1 (0.9-1.3) APTT 31 (26-36) SECONDS Sodium 139 (137-145) mmol/L Potassium 4.2 (3.4-5.1) mmol/L Chloride 103 (98-107) mmol/L Carbon Dioxide 30 (22-32) mmol/L BUN 14 (7-17) mg/dL Creatinine 0.62 (0.52-1.04) mg/dL Estimated GFR > 60 (>60) mL/min BUN/Creatinine Ratio 22.6 H (6-22) Glucose 97 (80-110) mg/dL Calcium 8.7 (8.4-10.2) mg/dL Total Bilirubin 0.6 (0.2-1.3) mg/dL AST 26 (14-36) IU/L ALT 19 (<35) IU/L Alkaline Phosphatase 47 (38-126) U/L Total Protein 7.0 (6.3-8.2) g/dL Albumin 3.9 (3.5-5.0) g/dL Globulin 3.1 (1.7-4.1) g/dL Albumin/Globulin Ratio 1.3 (1.0-2.8) MDM Narrative Medical decision making narrative: After history and exam CBC CMP PT PTT rhino rocket MDM CC: Epistaxis Complicating co-morbidities: None Data collected from: Patient and Medical records reviewed: No formal visit for this Differential considered: Includes but not limited to epistaxis rhinitis coagulopathy Exam documented above, pertinent findings include: No active bleeding Lab Test results independently reviewed as above. Pertinent findings: WBC 4.2 hemoglobin 12 hematocrit 36 platelets 166 INR 1.1 PT 13 PTT 31 Consultations: 8:50 a.m.. Spoke with otolaryngology Dr. Louis, patient to call office on Sunday to see Dr. Paulino Goldstein at [place] [facility]. No antibiotics indicated Treatments: Rhino rocket Re-evaluations: 9:39 a.m. Reviewed laboratory studies and exam with patient. They agree for follow up with Dr. Paulino Goldstein. Return precautions reviewed with them. No bleeding at time of discharge Discussion: Appropriate for discharge home. Appropriate for rhino rocket to be placed as patient has had intermittent bleeding. Patient will be able to be seen until Sunday or Sunday of next week. They do agree for rhino rocket placement. Diagnosis: Epistaxis Discharge Plan Departure Patient Disposition: Home Clinical Impression: Epistaxis Instructions: DI for Nosebleed Activity Restrictions/Additional Instructions: Return if any questions concerns or worsening symptoms. Return if nasal bleed occurs again. Please call this Sunday, Dr. Paulino Goldstein with provided phone number. Please light office know that Dr. Louis was on-call today and requested you to be seen by Dr. Goldstein at [place] [facility] on Sunday or Sunday. The nasal device will stain in your nose until office time. Prescriptions: No Action metoprolol succinate 25 mg tablet extended release 24 hr 25 mg PO DAILY OcuComplete 1 cap PO DAILY rosuvastatin 5 mg tablet 5 mg PO DAILY Qty: 90 3RF mupirocin 2 % ointment 1 applic topical BID Qty: 22 1RF Rx Instructions: 1 gram each nostril twice daily for 1 week calcium carbonate [Tums] 200 mg calcium (500 mg) Tablet,Chewable 1,500 mg PO DAILY famotidine [Pepcid] 20 mg Tablet 20 mg PO DAILY PRN (Reason: GI upset) multivitamin Tablet 1 tab PO DAILY aspirin 81 mg Tablet 81 mg PO DAILY cholecalciferol (vitamin D3) [Vitamin D3] 25 mcg (1,000 unit) Capsule 25 mcg PO DAILY Referrals: Paulino Goldstein MD [Physician] - Kaylee Gagnon DO [Primary Care Provider] - Stand Alone Forms: Patient Portal/API
[2023-01-20 09:00] VITALS: BP 129/67; PULSE 63; O2SAT 98
[2023-01-20 09:07] LABS: Add Manual Diff / Slide Review NO; Basophils Absolute Auto 100 /uL (0-100); Basophils Percent Auto 1.5 % (0-2); Eosinophils Absolute Auto 100 /uL (0-450); Eosinophils Percent Auto 3.4 % (2-4); Hematocrit 36.4 % (36-46); Hemoglobin 12.2 g/dL (12.0-16.0); Lymphocytes Absolute Auto 1300 /uL (1100-4500); Lymphocytes Percent Auto 30.5 % (25-40); Mean Corpuscular HGB Conc 33.5 % (30-36); Mean Corpuscular Hemoglobin 30.2 PG (26-34); Mean Corpuscular Volume 90.1 fL (80-100); Monocytes Absolute Auto 500 /uL (0-900); Monocytes Percent Auto 11.5 % (3-14); Neutrophils Absolute Auto 2200 /uL (1500-7000); Neutrophils Percent Auto 53.1 % (50-75); Platelet Count 166 X10^3/uL (150-400); Red Blood Cell Count 4.04 X10^6/uL (4.0-5.2); Red Cell Distribution Width 14.8 % (11.6-14.8); White Blood Cell Count 4.2 X10^3/uL (4.5-11.0)
[2023-01-20 09:15] LABS: INR 1.1 (0.9-1.3)
[2023-01-20 09:18] LABS: PTT Partial Thromboplastin Tim 31 SECONDS (26-36)
[2023-01-20 09:22] LABS: Alanine Aminotransferase 19 IU/L (<35); Albumin 3.9 g/dL (3.5-5.0); Albumin Globulin Ratio 1.3 (1.0-2.8); Alkaline Phosphatase 47 U/L (38-126); Aspartate Aminotransferase 26 IU/L (14-36); BUN Creatinine Ratio 22.6 (6-22); Bilirubin Total 0.6 mg/dL (0.2-1.3); Blood Urea Nitrogen 14 mg/dL (7-17); Calcium 8.7 mg/dL (8.4-10.2); Carbon Dioxide 30 mmol/L (22-32); Chloride 103 mmol/L (98-107); Estimated Glomerular Filt Rate > 60 mL/min (>60); Globulin 3.1 g/dL (1.7-4.1); Glucose 97 mg/dL (80-110); HEMOLYSIS < 15 (0-50); Potassium 4.2 mmol/L (3.4-5.1); Sodium 139 mmol/L (137-145)
[2023-01-20 09:30] VITALS: BP 127/64; PULSE 64; RESP 16; O2SAT 100
[2023-01-20 09:50] VITALS: BP 127/64; PULSE 70; RESP 19; O2SAT 99
[2023-01-21] MEDS: OXYMETAZOLINE NASAL SPRAY 15 ML 2 SPRAYS NASAL (01:09)
== END 2023-01-20 09:56 | disposition home or self-care (01) ==
PROVIDERS: Emergency Provider Emergency Medicine; Family Provider Internal Medicine; PCP Family Medicine
DX: R04.0 Epistaxis (principal)
CPT/HCPCS: 36415; 80053; 85025; 85610; 85730

== ENCOUNTER 2023-01-20 21:07 | Emergency (ER) | payer MEDICARE, OTHER, SELFPAY ==
[2022-09-06 15:50] VITALS: BMI 25.3
[2023-01-20 21:12] VITALS: BP 130/83; PULSE 83; RESP 16; TEMP 37.3; O2SAT 96; BMI 24.4
--- NOTE | 2023-01-20 21:50 | PC.NURSE ---
pt has left nare packed states she will just be sitting around and will feel the right side start bleeding, at this time the bleeding has stopped
--- NOTE | 2023-01-20 22:02 | ED_ITS ---
HPI - General Adult General Chief complaint: Nasal Problem Stated complaint: Nosebleed Time Seen by Provider: 01/20/23 21:37 Source: patient and family () Mode of arrival: Ambulatory Limitations: no limitations History of Present Illness HPI narrative: Patient is a 77-year-old female. She is been seen twice over the past couple days from a nosebleed. The most recent time was earlier this morning. She had a rhino rocket placed in her left nares. She was instructed she need to follow- up with ENT. She states that since she was discharged she is had 2 further episodes of bleeding. States she occasionally feels it going down the back of her throat but then also had an episode where his bleeding from her right nostril. She does not currently feel like there is any bleeding. No problems breathing. She states that maybe the rhino rocket has worked its way out somewhat does seems to be protruding slightly more than what it was earlier. Related Data Home Medications Medication Instructions Recorded Confirmed multivitamin 1 tab PO DAILY 02/22/18 09/08/22 calcium carbonate 200 mg calcium 1,500 mg PO DAILY 05/28/20 09/08/22 (500 mg) chewable tablet (Tums) famotidine 20 mg tablet (Pepcid) 20 mg PO DAILY PRN GI upset 05/28/20 09/08/22 ibuprofen 200 mg capsule 400 mg PO DAILY PRN Pain 05/28/20 09/08/22 aspirin 81 mg tablet 81 mg PO DAILY 03/15/22 09/08/22 cholecalciferol (vitamin D3) 25 25 mcg PO DAILY 03/15/22 09/08/22 mcg (1,000 unit) capsule (Vitamin D3) Previous Rx's Medication Instructions Recorded metoprolol tartrate 25 mg tablet See Rx Instructions .Route 02/17/22 .COMPLEX #90 tabs Allergies Allergy/AdvReac Type Severity Reaction Status Date / Time adhesive tape [ADHESIVE TAPE] Allergy Mild rash, Verified 01/20/23 08:45 paper ok chemo drugs AdvReac Mild constipation, Uncoded 01/20/23 08:45 depression Review of Systems ENT Ears, Nose, Mouth, and Throat: Reports system reviewed and no additional complaints, except as documented Respiratory Respiratory: Reports system reviewed and no additional complaints, except as documented Hematologic/Lymphatic On Anticoagulants: No Patient History Medical History Ankle pain (~2016) Basal cell carcinoma (~2018) Breast cancer (~2011) Cardiac arrhythmia Chicken pox Chronic back pain Endometriosis HTN (hypertension) Lumbar spinal stenosis Measles Mumps Osteopenia Polio Rosacea Rubella Scarlet fever Sciatica Surgical History Anesthesia H/O total knee replacement (~2019) History of back surgery (~1993) History of cardiac radiofrequency ablation (~05/2015) History of cataract removal with insertion of prosthetic lens (~12/2015) Hx of thumb surgery (01/2019) Status post breast lumpectomy (~11/2011) Status post colonoscopy Status post dilation and curettage (03/24/16) Status post hysterectomy (~03/2017) Status post laparoscopy (~1986) Status post laparotomy (~1987) Status post rotator cuff repair (~05/2006) Family History Child Age: 48 Hypertension Mother Hypertension Father No problems noted. Grandfather No problems noted. Grandfather No problems noted. Grandmother No problems noted. Social History marital status: household members: spouse education level: college Previous occupational history: Retired [employer] Smoking Status: Former smoker alcohol intake: current substance use type: does not use Smoking Status: Former smoker alcohol intake frequency: 0-2 drinks per day Substance Use Type: does not use Exam Initial Vital Signs Initial Vital Signs: Vital Signs Temperature 99.2 F 01/20/23 21:12 Pulse Rate 83 01/20/23 21:12 Respiratory Rate 16 01/20/23 21:12 Blood Pressure 130/83 01/20/23 21:12 Pulse Oximetry 96 01/20/23 21:12 Oxygen Delivery Method Room Air 01/20/23 21:12 HENMT Nose: external nose normal, nares normal (Right. Left naris has a rhino rocket in place) and septum normal (Right-sided septum unremarkable) Mouth: moist mucous membranes Throat: posterior oropharynx abnormal Skin General: no rashes or lesions noted Neuro General: patient alert and patient awake Course Orders Ordered: Discontinued Medications Bacitracin (Bacitracin Oint 0.9 Gm Pckt) 1 applic TOP NOW ONE Stop: 01/20/23 22:21 Last Admin: 01/20/23 22:31 Dose: 1 applic Documented By: JENNIFER Vital Signs Vital signs: Vital Signs - 8 hr 01/20/23 21:12 Temperature 99.2 F Pulse Rate 83 Respiratory Rate 16 Blood Pressure 130/83 Pulse Oximetry 96 Oxygen Delivery Method Room Air Medical Decision Making MDM Narrative Medical decision making narrative: She currently does not have any nosebleed. The rhino rocket is in place in the left nares but does seem to be protruding somewhat. We had a discussion regarding options to include removing the current rhino rocket in placing a larger 1 versus seeing if we could reposition the 1 [address] in [address]. After this discussion we opted to reposition the current 1. It was deflated and I was able to push it slightly further back into the nose and then it was reinflated. She was observed for period of time without any further bleeding. I feel that we should leave the current rhino rocket in place and not take it out as I am afraid we may disrupt any potential clot that is there. She was bleeding earlier today it seems to have stopped. We did discuss the possibility of using Afrin at home in the right side and also the nasal clip the bleeding were to return however we also discussed strict return precautions if this was not working. Both the patient and her were at bedside expressed underst anding and agreement with plan. Discharge Plan Departure Patient Disposition: Home Clinical Impression: Epistaxis Instructions: DI for Nosebleed Activity Restrictions/Additional Instructions: I do recommend that you purchase some Afrin like we discussed to have at home. If your nose starts to bleed again please perform the procedures like we discussed with squatting Afrin in your right nostril and using the clamp. I do recommend you follow-up with ear nose [facility] throat. You can contact them on Sunday morning. Return to the emergency department for new or worsening symptoms. Prescriptions: No Action metoprolol tartrate 25 mg tablet See Rx Instructions .ROUTE .COMPLEX Qty: 90 3RF Dose Instruction: TAKE ONE TABLET BY MOUTH ONE TIME DAILY Rx Instructions: TAKE ONE TABLET BY MOUTH ONE TIME DAILY calcium carbonate [Tums] 200 mg calcium (500 mg) Tablet,Chewable 1,500 mg PO DAILY ibuprofen 200 mg Capsule 400 mg PO DAILY PRN (Reason: Pain) famotidine [Pepcid] 20 mg Tablet 20 mg PO DAILY PRN (Reason: GI upset) multivitamin Tablet 1 tab PO DAILY aspirin 81 mg Tablet 81 mg PO DAILY cholecalciferol (vitamin D3) [Vitamin D3] 25 mcg (1,000 unit) Capsule 25 mcg PO DAILY Referrals: Kaylee Gagnon DO [Primary Care Provider] - Stand Alone Forms: Patient Portal/API
[2023-01-20] MEDS: BACITRACIN OINT 0.9 GM PCKT 1 APPLIC TOP (22:31)
== END 2023-01-20 23:16 | disposition home or self-care (01) ==
PROVIDERS: Emergency Provider Emergency Medicine; Family Provider Internal Medicine; PCP Family Medicine
DX: R04.0 Epistaxis (principal)
CPT/HCPCS: 30901; 36415; 80053; 85025; 85610; 85730; 99282; 99283

== ENCOUNTER → 2023-03-09 09:23 | Outpatient (CLI) | payer MEDICARE, OTHER, SELFPAY ==
[2022-09-06 15:50] VITALS: BMI 25.3
--- NOTE | 2023-03-09 | DI.MG.S_ITS ---
BILATERAL DIGITAL SCREENING MAMMOGRAM 3D/2D WITH CAD: 03/09/2023 CLINICAL: Routine screening. Family history of breast cancer. Comparison is made to exams dated: 03/08/2022 mammogram, 03/07/2021 mammogram, 03/05/2020 mammogram, and 12/16/2018 mammogram - [facility]. Both breasts are heterogeneously dense, which may obscure small masses (category c / 51-75% glandular tissue). Current study was also evaluated with a Computer Aided Detection (CAD) system. There are benign calcifications in both breasts. There also are benign vascular calcifications in both breasts. Additionally, there are benign post operative findings in the left breast. No significant masses, calcifications, or other findings are seen in either breast. There has been no significant interval change. IMPRESSION: BENIGN There is no mammographic evidence of malignancy. A 1 year screening mammogram is recommended. This exam was interpreted at Station ID: [id number]. NOTE: For mammograms, a report in lay terms will be sent to the patient. Approximately 15% of breast malignancies will not be visualized mammographically. In the management of a palpable breast mass, a negative mammogram must not discourage biopsy of a clinically suspicious lesion. Electronically Signed By: Андрей lloyd/stephan:03/09/2023 12:25:13 copy to: Kaylee Gagnon letter sent: Normal Exam ACR BI-RADS Category 2: Benign Finding(s) 3342F
== END ==
PROVIDERS: Family Provider Internal Medicine; PCP Internal Medicine; Referring Provider Internal Medicine Hematology & Oncology; Visit Provider Internal Medicine Hematology & Oncology
DX: Z12.31 Encounter for screening mammogram for malignant neoplasm of breast (principal); Z80.3 Family history of malignant neoplasm of breast
CPT/HCPCS: 77063; 77067

== ENCOUNTER → 2024-02-04 08:59 | Outpatient (CLI) | payer MEDICARE, OTHER, SELFPAY ==
[2022-09-06 15:50] VITALS: BMI 25.3
[2024-02-04 10:50] LABS: Hematocrit 37.8 % (36-46); Mean Corpuscular HGB Conc 34.4 % (30-36); Mean Corpuscular Hemoglobin 31.8 PG (26-34); Mean Corpuscular Volume 92.5 fL (80-100); Platelet Count 169 X10^3/uL (150-400); Red Blood Cell Count 4.09 X10^6/uL (4.0-5.2); Red Cell Distribution Width 13.9 % (11.6-14.8); White Blood Cell Count 5.9 X10^3/uL (4.5-11.0)
[2024-02-04 11:19] LABS: Alanine Aminotransferase 20 IU/L (<35); Albumin 4.4 g/dL (3.5-5.0); Albumin Globulin Ratio 1.5 (1.0-2.8); Alkaline Phosphatase 50 U/L (38-126); Aspartate Aminotransferase 31 IU/L (14-36); BUN Creatinine Ratio 31.7 (6-22); Bilirubin Total 0.6 mg/dL (0.2-1.3); Blood Urea Nitrogen 19 mg/dL (7-17); Calcium 9.7 mg/dL (8.4-10.2); Carbon Dioxide 30 mmol/L (22-32); Chloride 105 mmol/L (98-107); Cholesterol 188 mg/dL (140-199); Estimated Glomerular Filt Rate > 60 mL/min (>60); Glucose 95 mg/dL (80-110); HDL Cholesterol 80 mg/dL (40-60); HEMOLYSIS < 15 (0-50); LDL Cholesterol Calculated 86 mg/dL (<100); Potassium 4.7 mmol/L (3.4-5.1); Sodium 139 mmol/L (137-145); Total Protein 7.4 g/dL (6.3-8.2); Triglycerides 109 mg/dL (35-150)
[2024-02-04 11:39] LABS: TSH w/ Reflex to FT4 1.57 uIU/mL (0.47-4.68)
== END ==
LOC: LAB 09:00
PROVIDERS: Family Provider Internal Medicine; PCP Internal Medicine; Referring Provider Internal Medicine; Visit Provider Internal Medicine
DX: E78.2 Mixed hyperlipidemia (principal); I10 Essential (primary) hypertension; I47.10 Supraventricular tachycardia, unspecified; K52.9 Noninfective gastroenteritis and colitis, unspecified
CPT/HCPCS: 36415; 80053; 80061; 84443; 85027

== ENCOUNTER → 2024-03-10 12:56 | Outpatient (CLI) | payer MEDICARE, OTHER, SELFPAY ==
[2022-09-06 15:50] VITALS: BMI 25.3
--- NOTE | 2024-03-10 12:58 | DI.MG.S_ITS ---
BILATERAL DIGITAL SCREENING MAMMOGRAM 3D/2D WITH CAD: 03/10/2024 CLINICAL: Routine screening. Breast cancer. Comparison is made to exams dated: 03/09/2023 mammogram, 03/08/2022 mammogram, and 03/07/2021 mammogram - [facility]. Both breasts are heterogeneously dense, which may obscure small masses (category c / 51-75% glandular tissue). Current study was also evaluated with a Computer Aided Detection (CAD) system. The left breast has post-operative findings. There is possible architectural distortion in the right breast posterior depth superior region seen on the mediolateral oblique view only. No other significant masses, calcifications, or other findings are seen in either breast. IMPRESSION: INCOMPLETE: NEEDS ADDITIONAL IMAGING EVALUATION The possible architectural distortion in the right breast is indeterminate. Additional views with possible ultrasound are recommended. This exam was interpreted at Station ID: [id number]. NOTE: For mammograms, a report in lay terms will be sent to the patient. Approximately 15% of breast malignancies will not be visualized mammographically. In the management of a palpable breast mass, a negative mammogram must not discourage biopsy of a clinically suspicious lesion. Electronically Signed By: Terrell nunez/stephan:03/12/2024 10:00:06 copy to: Kaylee Gagnon letter sent: Additional Imaging Needed ACR BI-RADS Category 0: Incomplete [id number]
== END ==
PROVIDERS: Family Provider Internal Medicine; PCP Internal Medicine; Referring Provider Internal Medicine; Visit Provider Internal Medicine
DX: Z12.31 Encounter for screening mammogram for malignant neoplasm of breast (principal); Z85.3 Personal history of malignant neoplasm of breast; R92.333 Mammographic heterogeneous density, bilateral breasts
CPT/HCPCS: 77063; 77067

== ENCOUNTER → 2024-03-26 08:53 | Outpatient (CLI) | payer MEDICARE, OTHER, SELFPAY ==
[2022-09-06 15:50] VITALS: BMI 25.3
--- NOTE | 2024-03-26 08:54 | DI.MG.S_ITS ---
UNILATERAL RIGHT DIGITAL DIAGNOSTIC MAMMOGRAM 3D/2D WITH ADDITIONAL VIEWS: 03/26/2024 CLINICAL: Additional evaluation requested from prior study. Comparison is made to exams dated: 03/10/2024 mammogram, 03/09/2023 mammogram, 03/08/2022 mammogram, and 03/07/2021 mammogram - [facility]. The right breast is heterogeneously dense, which may obscure small masses (category c / 51-75% glandular tissue). There is architectural distortion in the right breast posterior depth superior region seen on the mediolateral oblique view only. No other significant masses or calcifications are seen in the breast. IMPRESSION: INCOMPLETE: NEEDS ADDITIONAL IMAGING EVALUATION The architectural distortion in the right breast is indeterminate. An ultrasound is recommended. This exam was interpreted at Station ID: [id number]. NOTE: For mammograms, a report in lay terms will be sent to the patient. Approximately 15% of breast malignancies will not be visualized mammographically. In the management of a palpable breast mass, a negative mammogram must not discourage biopsy of a clinically suspicious lesion. Electronically Signed By: Terrell Seals M.D. lc/:03/26/2024 10:27:43 copy to: Kaylee Gagnon ACR BI-RADS Category 0: Incomplete [id number]
--- NOTE | 2024-03-26 08:54 | DI.US.S_ITS ---
LIMITED ULTRASOUND OF RIGHT BREAST AND AXILLA: 03/26/2024 CLINICAL: Patient returns today to evaluate a focal asymmetry in the right breast. Comparison is made to exams dated: 03/26/2024 mammogram, 03/10/2024 mammogram, 03/09/2023 mammogram, 03/08/2022 mammogram, 03/07/2021 mammogram, and 03/05/2020 mammogram - [facility]. Color flow and real-time ultrasound of the right breast 10-1 o'clock, and axilla regions were performed. Bustillo scale images of the real-time examination were reviewed. There is a 0.6 cm x 0.5 cm x 0.3 cm irregular mass with an indistinct margin in the right breast at 12 o'clock middle depth 3 cm from the nipple. No significant abnormalities were seen sonographically in the right axilla. IMPRESSION: SUSPICIOUS OF MALIGNANCY The 0.6 cm x 0.5 cm x 0.3 cm irregular mass in the right breast is suspicious of malignancy. An ultrasound guided biopsy is recommended. This exam was interpreted at Station ID: [id number]. Electronically Signed By: Terrell Seals M.D. lc/:03/26/2024 10:28:40 copy to: Kaylee Gagnon letter sent: Biopsy Required Ultrasound BI-RADS: 4 Suspicious for malignancy
== END ==
LOC: MAMMO 08:54
PROVIDERS: Family Provider Internal Medicine; PCP Internal Medicine; Referring Provider Internal Medicine; Visit Provider Internal Medicine
DX: R92.8 Other abnormal and inconclusive findings on diagnostic imaging of breast (principal); N63.15 Unspecified lump in the right breast, overlapping quadrants; R92.333 Mammographic heterogeneous density, bilateral breasts
CPT/HCPCS: 76642; 77065; G0279

== ENCOUNTER → 2024-04-07 10:20 | Outpatient (CLI) | payer MEDICARE, OTHER, SELFPAY ==
[2022-09-06 15:50] VITALS: BMI 25.3
--- NOTE | 2024-04-07 | DI.MG.S_ITS ---
UNILATERAL RIGHT DIGITAL DIAGNOSTIC MAMMOGRAM 3D/2D: 04/07/2024 CLINICAL: POST CLIP. Comparison is made to exams dated: 03/26/2024 mammogram, 03/10/2024 mammogram, and 03/09/2023 mammogram - [facility]. The right breast is heterogeneously dense, which may obscure small masses (category c / 51-75% glandular tissue). There is a marker clip in the appropriate position in the right breast at 12 o'clock anterior depth. This marker clip placement is at the biopsy site. IMPRESSION: POST PROCEDURE MAMMOGRAM FOR MARKER PLACEMENT There was a successful marker clip placement in the right breast anterior depth. This exam was interpreted at Station ID: [id number]. NOTE: For mammograms, a report in lay terms will be sent to the patient. Approximately 15% of breast malignancies will not be visualized mammographically. In the management of a palpable breast mass, a negative mammogram must not discourage biopsy of a clinically suspicious lesion. Electronically Signed By: Arun Kirby M.D. jl/:04/07/2024 17:58:59 copy to: Kaylee Gagnon ACR BI-RADS Category Post-procedure mammogram for marker placement
--- NOTE | 2024-04-07 10:22 | DI.US.S_ITS ---
ULTRASOUND GUIDED BIOPSY RIGHT BREAST WITH MARKING DEVICE INSERTED AND POST DIGITAL MAMMOGRAPHIC IMAGIN04/07/2024 CLINICAL: Right breast mass. PATIENT CONSENT: Risks (minor bleeding, infection, vasovagal reaction and repeat procedure), benefits and alternatives were explained to the patient and written informed consent was obtained. Correlation is made to exams dated: 03/26/2024 ultrasound, 03/26/2024 mammogram, 03/10/2024 mammogram, and 03/09/2023 mammogram - [facility]. An ultrasound guided biopsy using real-time ultrasound was performed for the nodule located in the right breast at 12 o'clock middle depth. This was described on the previous ultrasound report. The skin was prepped in the usual manner. Local anesthetic was administered to the access site. A small incision was made in the breast. The abnormality was approached from the lateral aspect. A biopsy needle was placed adjacent to the abnormality under ultrasound guidance. Once the needle was documented to be in the correct location, four passes were made using a BARD biopsy device. The patient received additional local anesthetic during the procedure. A clip was inserted into the biopsy cavity. A skin adhesive was applied to the access site. Post procedure digital mammographic imaging demonstrates the location device at the targeted area. The specimens were sent to the laboratory for pathological analysis. IMPRESSION: ULTRASOUND GUIDED BIOPSY BENIGN Ultrasound guided biopsy of the nodule in the right breast at 12 o'clock middle depth was successful with no apparent post procedure complications. Pathology indicates benign fibroepithelial neoplasm. Pathology results are concordant with sonographic imaging findings. However, the biopsy marker is more anterior in positioning relative to area of possible architectural distortion. A follow-up right mammogram and a right ultrasound in 6 months is recommended to demonstrate stability. This exam was interpreted at Station ID: [id number]. Arun florentino,aty/:04/12/2024 23:57:23 copy to: Kaylee Gagnon
--- NOTE | 2024-04-07 10:30 | PATH_ITS ---
[facility] Accession Number: [id number] No. of containers..01 Tissue . 01 Material submitted: . breast - RIGHT BREAST 12:00 3CMFN MASS . 01 Clinical history: . RIGHT BREAST 12:00 3CMFN MASS . 01 Diagnosis: RIGHT BREAST 12:00 3 CMFN MASS: Fibroepithelial lesion, consistent with fibroadenoma. LYK 04/10/2024 1450 Local . 01 Comment: As part of routine quality control coordinator, this case was also reviewed by Dr. Cowan, who agrees with the interpretation. . 01 Electronically signed: . Barbara Matos MD, Pathologist NPI- [id number] . 01 Gross description: . Received is one formalin-filled container labeled with the patient's name and designated right breast 12 o'clock 3 cm FN mass. The specimen is received with plastic filter in container and sample loose in container, and consists of multiple fragments of yellow-barth soft tissue and clotted blood which range in size from 0.3 x 0.3 x 0.2 cm to 1.0 x 0.3 x 0.3 cm. All fragments are totally submitted in cassette A1. . Possible collection date per requisition 04/08/2024. Possible collection time per container 11:05 a.m. Total fixation time approximately 16 hours. (DC:[id number]) /JOSEM ARTIN 04/08/2024 0619 Local . 01 Microscopic: . Block A1 SMMS-1: Positive around regions of interest. p63: Positive around regions of interest. . The presence of myosin and p63 around the foci of interest supports an interpretation of benign breast parenchyma. . The controls stained appropriately. . * This test was developed and its performance characteristics determined by [facility]. It has not been cleared or approved by the U.S. Food and Drug Administration. The FDA has determined that such clearance or approval is not necessary. This test is used for clinical purposes. It should not be regarded as investigational or for research. . 01 Pathologist provided ICD-10: N63.10, R92.8 . 01 CPT . 205346, E52768 Performed at: [address] [facility] [address], [place], [place] [id number] MD Nhan Mata MD Phone: [phone]
== END ==
LOC: US 10:21
PROVIDERS: Family Provider Internal Medicine; PCP Internal Medicine; Referring Provider Internal Medicine; Visit Provider Internal Medicine
DX: D24.1 Benign neoplasm of right breast (principal); R92.331 Mammographic heterogeneous density, right breast
CPT/HCPCS: 19083; 77065

== ENCOUNTER → 2024-08-04 13:53 | Outpatient (CLI) | payer MEDICARE, OTHER, SELFPAY ==
[2022-09-06 15:50] VITALS: BMI 25.3
--- NOTE | 2024-08-04 13:54 | DI.RAD.S_ITS ---
PROCEDURE: XR CHEST 2V INDICATIONS: Cough TECHNIQUE: 2 views of the chest were acquired. COMPARISON: [facility], , CHEST 1 VIEW, 02/07/2015, 18:14. FINDINGS: Heart, mediastinum and pulmonary vasculature: Heart is normal in size and configuration. Mediastinum is unremarkable. Pulmonary vascular is normal. Lungs: Clear Pleural spaces: Normal-no effusions or pneumothorax. Bones and soft tissues: Mild degenerative disc disease seen throughout the upper midthoracic spine. IMPRESSION: Normal chest. Dictated by: Dain Callahan M.D. on 08/05/2024 at 10:06 Approved by: Dain Callahan M.D. on 08/05/2024 at 10:06
== END ==
PROVIDERS: Family Provider Internal Medicine; PCP Internal Medicine; Referring Provider Nurse Practitioner Family; Visit Provider Nurse Practitioner Family
DX: R05.9 Cough, unspecified (principal)
CPT/HCPCS: 71046

== ENCOUNTER → 2024-11-13 10:18 | Outpatient (CLI) | payer MEDICARE, OTHER, SELFPAY ==
[2022-09-06 15:50] VITALS: BMI 25.3
--- NOTE | 2024-11-13 10:20 | DI.MG.S_ITS ---
UNILATERAL RIGHT DIGITAL DIAGNOSTIC MAMMOGRAM 3D/2D: 11/13/2024 CLINICAL: Patient returns for a 6 month follow up of the right breast. Post biopsy. Comparison is made to exams dated: 04/07/2024 mammogram, 03/26/2024 mammogram, 03/09/2023 mammogram, 03/10/2024 mammogram, and 03/08/2022 mammogram - [facility]. The breasts are heterogeneously dense, which may obscure small masses (category c / 51-75% glandular tissue). There is a biopsy site marker on the right breast in the middle depth. There are benign calcifications in the right breast that are not significantly changed. The previously described architectural distortion in the right breast posterior depth superior region seen on the mediolateral oblique view only is not confirmed in additional views and appears less prominent. This was not seen on the prior ultrasound. No other significant masses or calcifications are seen in the breast. IMPRESSION: INCOMPLETE: NEED ADDITIONAL IMAGING EVALUATION The possible architectural distortion in the right breast is indeterminate. An ultrasound is recommended for further evaluation and is scheduled to immediately follow this examination. Re-evaluation of previous biopsied lesion will also be performed. This exam was interpreted at Station ID: [id number]. NOTE: For mammograms, a report in lay terms will be sent to the patient. Approximately 15% of breast malignancies will not be visualized mammographically. In the management of a palpable breast mass, a negative mammogram must not discourage biopsy of a clinically suspicious lesion. Electronically Signed By: Rigo Storey M.D. aty/:11/13/2024 12:09:08 copy to: Kaylee Gagnon letter sent: Additional Imaging Needed ACR BI-RADS Category 0: Incomplete: Need Additional Imaging Evaluation
--- NOTE | 2024-11-13 10:20 | DI.US.S_ITS ---
LIMITED ULTRASOUND OF RIGHT BREAST: 11/13/2024 CLINICAL: 6 month follow-up of biopsy, +UOQ posterior. Comparison is made to exams dated: 04/07/24 ultrasound biopsy right, 04/07/24 diagnostic right mammogram, 03/26/24 ultrasound right, 03/26/24 diagnostic right mammogram addl views Real-time ultrasound of the right breast upper outer quadrant was performed. Bustillo scale images of the real-time examination were reviewed. The previously biopsied irregular mass with an indistinct margin in the right breast at 12 o'clock middle depth 3 cm from the nipple is no longer seen. There is an associated biopsy clip at the site. Color flow imaging demonstrates that there is no vascularity present. There is no abnormality seen in the right breast to correspond with the possible subtle architectural distortion seen on mammographic evaluation within the upper aspect. IMPRESSION: PROBABLY BENIGN There is no abnormality seen in the right breast to correspond with the possible subtle architectural distortion noted in the upper aspect. A follow-up bilateral mammogram with possible right ultrasound in 6 months is recommended to demonstrate continued stability. If findings resolve or are stable, then consideration to return to annual screening mammography can be made at that time. Findings and recommendations were conveyed to the patient during today's evaluation. This exam was interpreted at Station ID: [id number]. Electronically Signed By: Rigo Storey M.D. at/:11/20/2024 08:41:00 Entry: - 11/20/2024 10:45:32 copy to: Kaylee Gagnon letter sent: Followup Recommended ACR BI-RADS Category 3: Probably Benign
== END ==
PROVIDERS: Family Provider Internal Medicine; PCP Internal Medicine; Referring Provider Internal Medicine; Visit Provider Internal Medicine
DX: R92.8 Other abnormal and inconclusive findings on diagnostic imaging of breast (principal); R92.1 Mammographic calcification found on diagnostic imaging of breast; R92.333 Mammographic heterogeneous density, bilateral breasts; Z98.890 Other specified postprocedural states
CPT/HCPCS: 76642; 77065; G0279

== ENCOUNTER → 2025-03-11 07:56 | Outpatient (CLI) | payer MEDICARE, OTHER, SELFPAY ==
[2022-09-06 15:50] VITALS: BMI 25.3
[2025-03-11 08:50] LABS: Creatinine Urine Random 96.85 mg/dL
[2025-03-11 08:55] LABS: Microalbumin Urine Random 0.8 mg/dL (0-1.6)
[2025-03-11 09:24] LABS: Aspartate Aminotransferase 31 IU/L (14-36); BUN Creatinine Ratio 22.7 (6-22); Blood Urea Nitrogen 15 mg/dL (7-17); Calcium 9.4 mg/dL (8.4-10.2); Carbon Dioxide 29 mmol/L (22-32); Chloride 104 mmol/L (98-107); Cholesterol 167 mg/dL (140-199); Estimated Glomerular Filt Rate > 60 mL/min (>60); Glucose 90 mg/dL (70-99); HDL Cholesterol 76 mg/dL (40-60); HEMOLYSIS < 15 (0-50); LDL Cholesterol Calculated 72 mg/dL (<100); Potassium 4.8 mmol/L (3.4-5.1); Sodium 139 mmol/L (137-145); Triglycerides 95 mg/dL (35-150)
== END ==
PROVIDERS: Family Provider Internal Medicine; PCP Internal Medicine; Referring Provider Internal Medicine; Visit Provider Internal Medicine
DX: I10 Essential (primary) hypertension (principal); E78.2 Mixed hyperlipidemia
CPT/HCPCS: 36415; 80048; 80061; 82043; 82570; 84450